=== PATIENT | female | born 1940 | race Caucasian/White ===

== ENCOUNTER 2016-09-18 18:17 | Emergency (ER) | payer MEDICARE, BC ==
[~2016-09-18] VITALS: Wt 56.7 kg
[~2016-09-18 18:17] MED LIST: ACID CONTROLLER20 M1 PO; ALBUTEROL0.09 MG/A2 IH; ALPRAZOLAM0.5 M3 PO; AMOXIL500 MG PO; ANTIVERT25 MG PO; ASPIRIN81 M1 PO; ATIVAN0.5 MG PO; ATROVENT I0.5 MG/2.5 INH; AUGMENTIN 500 M1 TAB PO; AUGMENTIN 500500 M1 PO; AUGMENTIN 875875 MG PO; AVPAK AZITHROM250 M1 PO; AZITHROMYCIN250 MG PO; B-12500 MC1 PO; B121000 MCG/1 IM; BACTRIM DS 8001 TA1 PO; BISCOLAX10 M1 RC; BP MEDICATION; CALCIUM 500-VI1 EACH PO; CALCIUM CARBON500 M1 PO; CARDIZEM CD240 MG PO; CARDIZEM30 MG PO; CARDIZEM5 MG/ML PO; CARDOXIN0.25 MG PO; CEFUROXIME AXE250 MG PO; CELLCEPT250 MG PO; CEPACOL SORE T1 EAC1 MM; CLOTRIMAZOLE TR10 MG PO; COLACE100 MG PO; COREG3.125 MG PO; COUMADIN2 M1 PO; COUMADIN2 MG PO; COUMADIN2.5 M1 PO; COUMADIN3 MG PO; COUMADIN4 M1 PO; COUMADIN5 M2 PO; COUMADIN6 M2 PO; COZAAR25 MG PO; COZAAR50 MG PO; CYMBALTA30 MG PO; Carafate1 GM PO; Coumadin5 MG PO; D-31000 IU PO; DALI500T PO; DAYPRO600 M1 PO; DEEP SEA 45 ML45 ML NAS; DELTASONE10 MG PO; DELTASONE20 MG PO; DIFLUCAN100 MG PO; DIFLUCAN200 MG PO; DIGOXIN0.125 MG PO; DOXYCYCLINE100 MG PO; DULCOLAX5 M1 PO; DULOXETINE HCL60 MG PO; DUONEB 3 MG/3 ML3 M1 INH; DUONEB 3 MG/3 ML3 M1 NEB; Duoneb 3ML 3 MG/3 ML INH; FEOSOL325 MG PO; FERROUSAL325 MG PO; FLOMAX0.4 MG PO; FLONASE0.05 MG/AC NS; FLUCONAZOLE100 MG PO; FLUTICASONE PRO INH; Feosol300 MG PO; Fiorinal,Butalb1 TAB PO; GABAPENTIN100 MG PO; HEMORRHOIDAL TP; HYDROCODONE BIT1 T11 PO; INDOCIN50 MG PO; IRON65 MG PO; K + POTASSIUM20 MEQ PO; K-DUR 20MEQ20 MEQ PO; KLONOPIN0.5 MG PO; LACTULOSE10 GM/15 M PO; LASIX20 MG PO; LASIX80 MG PO; LAXATIVE5 MG PO; LEXAPRO10 MG PO; LISINOPRIL2.5 MG PO; LORAZEPAM0.5 MG PO; LOVASTATIN40 MG PO; Lovenox60 MG/0.6 PO; Lovenox60 MG/0.6 SC; MELATONIN3 MG PO; MELATONIN5 M1 PO; MIACALCIN SPRAY1 EA NAS; MILK OF MA400 MG/51 PO; MIRALAX17 GM PO; MIRALAX17 GM/PACK PO; MIRTAZAPINE15 M2 PO; MUCINEX ER600 MG PO; MUCINEX600 MG PO; MYCAMINE100 MG IV; MYCOSTATIN100000 U/M PO; MYLANTA240 MG MM; Miralax Powder255 GM PO; NEBULIZER DEVI; NEURONTIN100 MG PO; NEURONTIN300 MG PO; NILSTAT,MY500000 UN/ PO; NITROSTAT0.4 MG SL; NORFLEX100 MG PO; NOVAPLUS MYCAM100 MG IV; OCEAN104 ML NAS; OMEPRAZOLE40 MG PO; OXYCODONE AND A1 T12 PO; OXYCODONE HCL5 MG PO; PEPCID20 MG PO; PERCOCET 325 MG1 TA2 PO; PERCOCET 325 MG1 TA3 PO; PERCOCET 325 MG1 TA5 PO; PERCOCET 325 MG1 TA7 PO; PERCOCET 325 MG1 TAB PO; PLAVIX75 MG PO; POTASSIUM CHLO20 ME3 PO; POTASSIUM20 MEQ PO; PRAVACHOL40 MG PO; PREDNICOT20 MG PO; PREDNISONE10 MG PO; PREDNISONE20 M1 PO; PREDNISONE20 MG PO; PREDNISONE5 MG PO; PREDNISONE50 MG PO; PRILOSEC20 M2 PO; PRILOSEC40 M1 PO; PRILOSEC40 MG PO; PROTONIX TR40 M1 PO; PROTONIX TR40 MG PO; PROTONIX40 MG PO; PROVASTATIN; PULMICORT RESP0.5 M1 NEB; PULMICORT RESP0.5 MG INH; PULMICORT RESP0.5 MG NEB; REGLAN5 MG PO; RESTORIL15 MG PO; RISPERDAL0.25 MG PO; RISPERIDONE0.5 MG PO; ROBITUSSIN AC 110 ML PO; ROPINIROLE HYDRO2 M1 PO; SENNA-PLUS 50 M1 TA1 PO; SENNA1 TAB PO; SENNA8.6 MG PO; SEROQUEL25 MG PO; SPIRIVA -- 3018 MCG INH; SYNTHROID25 MCG PO; TEMAZEPAM15 MG PO; TESSALON PERLE100 M1 PO; TESSALON PERLE100 MG PO; TIKOSYN0.25 MG PO; TIKOSYN0.5 MG PO; TORSEMIDE20 MG PO; TRAZODONE50 MG PO; TRIMOX500 MG PO; TYLENOL EXTRA500 M2 PO; TYLENOL325 M2 PO; ULTRAM50 MG PO; VANCOMYCIN HYD500 MG IV; VIBRAMYCIN100 MG PO; VISTARIL25 M2 PO; VITAMIN B12500 MCG PO; VITAMIN D1000 IU PO; VITAMIN D50000 I3 PO; VOLTAREN GEL1% TP; Ventolin 02.5 MG/3 M INH; WARFARIN SODIUM1 MG PO; WARFARIN4 MG PO; XANAX0.25 MG PO; XOPENEX0.63 MG INH; ZESTRIL10 MG PO; ZITHROMAX TRI-500 M1 PO; ZITHROMAX250 MG PO; ZOFRAN ODT4 MG SL; ZOLOFT100 MG PO
[2016-09-18 21:00] LABS: BASO % 0.1 % (0.0-1.0); EOS % 0.1 % (1.0-4.0); HEMATOCRIT 28.6 % (37.0-47.0); HEMOGLOBIN 8.7 g/dl (12.0-16.0); IG # 0.2 10*3/uL (0.0-0.1); LYMPH # 1.6 10*3/uL (1.3-4.4); LYMPH % 14.1 % (27.0-41.0); MEAN CELL VOLUME 103.6 fl (81.0-99.0); MEAN CORPUSCULAR HGB 31.5 pg (27.0-31.0); MEAN CORPUSCULAR HGB CONC 30.4 g/dl (33.0-37.0); MEAN PLATELET VOLUME 9.9 fl (9.6-12.3); MONO % 8.6 % (3.0-9.0); NEUT # 8.6 10*3/uL (2.3-7.9); NEUT % 75.1 % (47.0-73.0); PLATELET COUNT AUTOMATED 220 10*3/uL (130-400); RED BLOOD COUNT 2.76 10*6/uL (4.10-5.10); RED CELL DISTRI WIDTH 14.7 % (0-14.5); WHITE BLOOD COUNT 11.5 10*3/uL (4.8-10.8)
[2016-09-18 21:16] LABS: ALBUMIN 3.5 gm/dl (3.1-4.5); BILIRUBIN, TOTAL 0.1 mg/dl (0.2-1.0); POTASSIUM 3.8 mmol/L (3.5-5.1); TOTAL PROTEIN 6.8 gm/dL (6.4-8.2)
[2016-09-18 21:24] LABS: PROTHROMBIN TIME 78.9 SECONDS (9.0-12.4)
[2016-09-18 21:28] LABS: INTERNATIONAL NORM RATIO 6.6 (2.0-3.5)
[2016-09-18 22:15] LABS: BILIRUBIN NEGATIVE (NEGATIVE); BLOOD TRACE-LYSED (NEGATIVE); CLARITY CLEAR (CLEAR); COLOR YELLOW (YELLOW); GLUCOSE NEGATIVE (NEGATIVE); KETONE NEGATIVE (NEGATIVE); LEUKO ESTERASE NEGATIVE (NEGATIVE); NITRITE NEGATIVE (NEGATIVE); PROTEIN NEGATIVE (NEGATIVE); UROBILINOGEN 0.2 E.U./dl (0.2-1.0)
[2016-09-18 22:41] LABS: HYALINE CAST TNTC; URINE REFLEX COMMENT NO (NO)
== END 2016-09-19 | disposition home or self-care (01) ==
LOC: ED 18:17
PROVIDERS: Nurse Practitioner Family
DX: S81.802A Unspecified open wound, left lower leg, initial encounter (principal); N17.9 Acute kidney failure, unspecified; R79.1 Abnormal coagulation profile; R60.9 Edema, unspecified; I48.91 Unspecified atrial fibrillation; F41.9 Anxiety disorder, unspecified; I25.10 Atherosclerotic heart disease of native coronary artery without angina pectoris; I50.9 Heart failure, unspecified; D64.9 Anemia, unspecified; I12.9 Hypertensive chronic kidney disease with stage 1 through stage 4 chronic kidney disease, or unspecified chronic kidney disease; N18.3 Chronic kidney disease, stage 3 (moderate); J44.9 Chronic obstructive pulmonary disease, unspecified; M47.9 Spondylosis, unspecified; F32.9 Major depressive disorder, single episode, unspecified; K21.9 Gastro-esophageal reflux disease without esophagitis; E78.5 Hyperlipidemia, unspecified; G25.81 Restless legs syndrome; Z95.5 Presence of coronary angioplasty implant and graft; Z95.1 Presence of aortocoronary bypass graft; Z95.0 Presence of cardiac pacemaker; Z96.641 Presence of right artificial hip joint; G89.29 Other chronic pain; Z79.899 Other long term (current) drug therapy; Z88.5 Allergy status to narcotic agent; Z88.1 Allergy status to other antibiotic agents; X58.XXXA Exposure to other specified factors, initial encounter; Y93.89 Activity, other specified; Y92.89 Other specified places as the place of occurrence of the external cause; Y99.9 Unspecified external cause status

== ENCOUNTER 2016-10-17 16:44 | Emergency (ER) | payer MEDICARE, BC ==
[~2016-10-17] VITALS: Ht 162.5 cm; Wt 52.2 kg
[2016-10-17 16:48] VITALS: BP 137/69
[2016-10-17] MEDS ORDERED: NASONEX0.05 MG/AC NAS ×2 (17:08→17:10)
== END 2016-10-17 18:18 | disposition home or self-care (01) ==
LOC: ED 16:44
DX: F41.9 Anxiety disorder, unspecified (principal); R09.81 Nasal congestion; Z95.0 Presence of cardiac pacemaker; Z95.1 Presence of aortocoronary bypass graft; Z95.5 Presence of coronary angioplasty implant and graft; I48.91 Unspecified atrial fibrillation; I25.10 Atherosclerotic heart disease of native coronary artery without angina pectoris; I50.9 Heart failure, unspecified; I12.9 Hypertensive chronic kidney disease with stage 1 through stage 4 chronic kidney disease, or unspecified chronic kidney disease; N18.3 Chronic kidney disease, stage 3 (moderate); F32.9 Major depressive disorder, single episode, unspecified; K21.9 Gastro-esophageal reflux disease without esophagitis; E78.5 Hyperlipidemia, unspecified; Z88.1 Allergy status to other antibiotic agents; Z88.6 Allergy status to analgesic agent; Z79.01 Long term (current) use of anticoagulants

== ENCOUNTER 2016-11-08 20:54 | Emergency (ER) | payer MEDICARE, BC ==
[~2016-11-08 20:54] MED LIST changes: +NASONEX0.05 MG/AC NAS
[2016-11-08 21:27] LABS: BASO % 0.2 % (0.0-1.0); EOS % 0.1 % (1.0-4.0); HEMATOCRIT 27.3 % (37.0-47.0); HEMOGLOBIN 8.8 g/dl (12.0-16.0); IG # 0.1 10*3/uL (0.0-0.1); LYMPH # 1.5 10*3/uL (1.3-4.4); LYMPH % 13.6 % (27.0-41.0); MEAN CELL VOLUME 97.8 fl (81.0-99.0); MEAN CORPUSCULAR HGB 31.5 pg (27.0-31.0); MEAN CORPUSCULAR HGB CONC 32.2 g/dl (33.0-37.0); MEAN PLATELET VOLUME 9.4 fl (9.6-12.3); MONO # 0.7 10*3/uL (0.1-1.0); MONO % 6.1 % (3.0-9.0); NEUT # 8.9 10*3/uL (2.3-7.9); PLATELET COUNT AUTOMATED 228 10*3/uL (130-400); RED BLOOD COUNT 2.79 10*6/uL (4.10-5.10); RED CELL DISTRI WIDTH 14.6 % (0-14.5); WHITE BLOOD COUNT 11.2 10*3/uL (4.8-10.8)
[2016-11-08 21:43] LABS: ALBUMIN 3.3 gm/dl (3.1-4.5); BILIRUBIN, TOTAL 0.3 mg/dl (0.2-1.0); POTASSIUM 3.8 mmol/L (3.5-5.1); PROTHROMBIN TIME 60.2 SECONDS (9.0-12.4); TOTAL PROTEIN 7.3 gm/dL (6.4-8.2)
[2016-11-08 21:44] LABS: TROPONIN I 0.017 ng/ml (<0.045)
[2016-11-08 21:46] LABS: INTERNATIONAL NORM RATIO 5.1 (2.0-3.5)
[2016-11-08 21:48] VITALS: BP 113/61
== END 2016-11-08 23:34 | disposition short-term general hospital (02) ==
LOC: ED 20:54
PROVIDERS: Emergency Medicine Emergency Medical Services
DX: J44.1 Chronic obstructive pulmonary disease with (acute) exacerbation (principal); N17.9 Acute kidney failure, unspecified; I50.30 Unspecified diastolic (congestive) heart failure; F41.9 Anxiety disorder, unspecified; I48.91 Unspecified atrial fibrillation; I25.10 Atherosclerotic heart disease of native coronary artery without angina pectoris; F32.9 Major depressive disorder, single episode, unspecified; K21.9 Gastro-esophageal reflux disease without esophagitis; E78.5 Hyperlipidemia, unspecified; G89.29 Other chronic pain; M47.9 Spondylosis, unspecified; I12.9 Hypertensive chronic kidney disease with stage 1 through stage 4 chronic kidney disease, or unspecified chronic kidney disease; N18.3 Chronic kidney disease, stage 3 (moderate); Z88.1 Allergy status to other antibiotic agents; Z88.6 Allergy status to analgesic agent; Z79.899 Other long term (current) drug therapy; Z79.02 Long term (current) use of antithrombotics/antiplatelets

== ENCOUNTER 2016-11-13 19:43 | Emergency (ER) | payer MEDICARE, BC ==
[~2016-11-13] VITALS: Ht 157.4 cm; Wt 54.0 kg
[2016-11-13 19:54] VITALS: BP 135/64
== END 2016-11-13 22:55 | disposition home or self-care (01) ==
LOC: ED 19:43
DX: S20.212A Contusion of left front wall of thorax, initial encounter (principal); I25.10 Atherosclerotic heart disease of native coronary artery without angina pectoris; I50.9 Heart failure, unspecified; I48.91 Unspecified atrial fibrillation; F41.9 Anxiety disorder, unspecified; J44.9 Chronic obstructive pulmonary disease, unspecified; G89.29 Other chronic pain; F32.9 Major depressive disorder, single episode, unspecified; K21.9 Gastro-esophageal reflux disease without esophagitis; E78.5 Hyperlipidemia, unspecified; I12.9 Hypertensive chronic kidney disease with stage 1 through stage 4 chronic kidney disease, or unspecified chronic kidney disease; N18.3 Chronic kidney disease, stage 3 (moderate); Z88.1 Allergy status to other antibiotic agents; Z88.6 Allergy status to analgesic agent; Z79.899 Other long term (current) drug therapy; W18.39XA Other fall on same level, initial encounter; Y93.89 Activity, other specified; Y92.89 Other specified places as the place of occurrence of the external cause; Y99.8 Other external cause status

== ENCOUNTER 2016-11-15 14:31 | Emergency (ER) | payer MEDICARE, BC ==
[~2016-11-15] VITALS: Ht 152.4 cm
[2016-11-15 15:09] LABS: BASO % 0.2 % (0.0-1.0); EOS # 0.1 10*3/uL (0.0-0.4); EOS % 0.8 % (1.0-4.0); HEMATOCRIT 28.5 % (37.0-47.0); HEMOGLOBIN 8.8 g/dl (12.0-16.0); IG # 0.2 10*3/uL (0.0-0.1); LYMPH # 0.6 10*3/uL (1.3-4.4); LYMPH % 4.9 % (27.0-41.0); MEAN CELL VOLUME 101.8 fl (81.0-99.0); MEAN CORPUSCULAR HGB 31.4 pg (27.0-31.0); MEAN CORPUSCULAR HGB CONC 30.9 g/dl (33.0-37.0); MEAN PLATELET VOLUME 8.9 fl (9.6-12.3); MONO # 0.4 10*3/uL (0.1-1.0); MONO % 3.3 % (3.0-9.0); NEUT # 10.4 10*3/uL (2.3-7.9); NEUT % 89.5 % (47.0-73.0); PLATELET COUNT AUTOMATED 213 10*3/uL (130-400); RED CELL DISTRI WIDTH 14.9 % (0-14.5); WHITE BLOOD COUNT 11.6 10*3/uL (4.8-10.8)
[2016-11-15 15:12] VITALS: BP 142/64
[2016-11-15 15:15] LABS: INTERNATIONAL NORM RATIO 2.7 (2.0-3.5); PROTHROMBIN TIME 30.7 SECONDS (9.0-12.4)
[2016-11-15 15:27] LABS: ALBUMIN 3.2 gm/dl (3.1-4.5); BILIRUBIN, TOTAL 0.3 mg/dl (0.2-1.0); MAGNESIUM 1.7 mg/dL (1.5-2.1)
[2016-11-15 15:28] LABS: TROPONIN I 0.034 ng/ml (<0.045)
[2016-11-15 15:45] LABS: BILIRUBIN NEGATIVE (NEGATIVE); BLOOD TRACE-INTACT (NEGATIVE); CLARITY SL CLOUDY (CLEAR); COLOR YELLOW (YELLOW); GLUCOSE NEGATIVE (NEGATIVE); KETONE NEGATIVE (NEGATIVE); LEUKO ESTERASE NEGATIVE (NEGATIVE); NITRITE NEGATIVE (NEGATIVE); PH 5.5 (5.0-9.0); PROTEIN NEGATIVE (NEGATIVE); UROBILINOGEN 0.2 E.U./dl (0.2-1.0)
[2016-11-15 15:52] LABS: BACTERIA 2+
== END 2016-11-15 16:41 | disposition home or self-care (01) ==
LOC: ED 14:31
PROVIDERS: Student in an Organized Health Care Education/Training Program
DX: R06.02 Shortness of breath (principal); I48.91 Unspecified atrial fibrillation; F41.9 Anxiety disorder, unspecified; I25.10 Atherosclerotic heart disease of native coronary artery without angina pectoris; I50.9 Heart failure, unspecified; G89.29 Other chronic pain; I12.9 Hypertensive chronic kidney disease with stage 1 through stage 4 chronic kidney disease, or unspecified chronic kidney disease; N18.3 Chronic kidney disease, stage 3 (moderate); J44.9 Chronic obstructive pulmonary disease, unspecified; F32.9 Major depressive disorder, single episode, unspecified; K21.9 Gastro-esophageal reflux disease without esophagitis; E78.5 Hyperlipidemia, unspecified; Z86.711 Personal history of pulmonary embolism; G25.81 Restless legs syndrome; Z95.5 Presence of coronary angioplasty implant and graft; Z96.641 Presence of right artificial hip joint; Z95.1 Presence of aortocoronary bypass graft; Z95.0 Presence of cardiac pacemaker; Z98.890 Other specified postprocedural states; Z79.899 Other long term (current) drug therapy; Z88.5 Allergy status to narcotic agent; Z88.1 Allergy status to other antibiotic agents

== ENCOUNTER 2016-12-06 14:52 | Emergency (ER) | payer MEDICARE, BC ==
[~2016-12-06] VITALS: Ht 157.4 cm; Wt 52.6 kg
[2016-12-06] MEDS ORDERED: JANTOVEN4 M1 PO (15:03)
[2016-12-06 15:34] LABS: BASO % 0.3 % (0.0-1.0); EOS # 0.1 10*3/uL (0.0-0.4); EOS % 0.8 % (1.0-4.0); HEMATOCRIT 29.5 % (37.0-47.0); HEMOGLOBIN 9.2 g/dl (12.0-16.0); IG # 0.1 10*3/uL (0.0-0.1); LYMPH # 0.7 10*3/uL (1.3-4.4); MEAN CELL VOLUME 101.7 fl (81.0-99.0); MEAN CORPUSCULAR HGB 31.7 pg (27.0-31.0); MEAN CORPUSCULAR HGB CONC 31.2 g/dl (33.0-37.0); MEAN PLATELET VOLUME 9.1 fl (9.6-12.3); MONO # 0.9 10*3/uL (0.1-1.0); MONO % 7.7 % (3.0-9.0); NEUT # 9.6 10*3/uL (2.3-7.9); NEUT % 84.5 % (47.0-73.0); PLATELET COUNT AUTOMATED 245 10*3/uL (130-400); RED CELL DISTRI WIDTH 14.2 % (0-14.5); WHITE BLOOD COUNT 11.4 10*3/uL (4.8-10.8)
[2016-12-06 15:51] LABS: ALBUMIN 3.6 gm/dl (3.1-4.5); BILIRUBIN, TOTAL 0.4 mg/dl (0.2-1.0); POTASSIUM 3.7 mmol/L (3.5-5.1); TOTAL PROTEIN 7.5 gm/dL (6.4-8.2)
[2016-12-06 15:52] LABS: TROPONIN I 0.018 ng/ml (<0.045)
[2016-12-06 16:55] LABS: BILIRUBIN NEGATIVE (NEGATIVE); BLOOD TRACE-LYSED (NEGATIVE); CLARITY SL CLOUDY (CLEAR); COLOR YELLOW (YELLOW); GLUCOSE NEGATIVE (NEGATIVE); KETONE NEGATIVE (NEGATIVE); LEUKO ESTERASE TRACE (NEGATIVE); NITRITE NEGATIVE (NEGATIVE); PROTEIN NEGATIVE (NEGATIVE); SPECIFIC GRAVITY <= 1.005 (1.005-1.030); UROBILINOGEN 0.2 E.U./dl (0.2-1.0)
[2016-12-06 17:02] LABS: INTERNATIONAL NORM RATIO 1.8 (2.0-3.5); PROTHROMBIN TIME 20.1 SECONDS (9.0-12.4)
[2016-12-06] MEDS ORDERED: DULOXETINE HCL60 MG PO (17:03)
[2016-12-06 17:05] LABS: BACTERIA TRACE; EPITHELIAL CELLS 0-2; URINE REFLEX COMMENT YES (NO)
[2016-12-06 17:30] LABS: LA>2 REFLEX 2 HR DRAW NOW
[2016-12-06 17:47] LABS: LA>2 RFLX FOLLOW UP AT 2 HRS 3.6 mmol/L (0.4-2.0)
[2016-12-06 19:41] LABS: LA>2 REFLEX 4 HR DRAW NOW
[2016-12-06 20:39] VITALS: BP 120/66
== END 2016-12-07 01:42 | disposition short-term general hospital (02) ==
LOC: ED 14:52
PROVIDERS: Nurse Practitioner Family
DX: J44.1 Chronic obstructive pulmonary disease with (acute) exacerbation (principal); N28.9 Disorder of kidney and ureter, unspecified; D53.9 Nutritional anemia, unspecified; J44.9 Chronic obstructive pulmonary disease, unspecified; I25.10 Atherosclerotic heart disease of native coronary artery without angina pectoris; I50.9 Heart failure, unspecified; I48.91 Unspecified atrial fibrillation; K21.9 Gastro-esophageal reflux disease without esophagitis; E78.5 Hyperlipidemia, unspecified; I12.9 Hypertensive chronic kidney disease with stage 1 through stage 4 chronic kidney disease, or unspecified chronic kidney disease; N18.3 Chronic kidney disease, stage 3 (moderate); M47.9 Spondylosis, unspecified; Z88.1 Allergy status to other antibiotic agents; Z88.6 Allergy status to analgesic agent; Z79.899 Other long term (current) drug therapy; Z79.02 Long term (current) use of antithrombotics/antiplatelets

== ENCOUNTER 2017-01-08 20:04 | Emergency (ER) | payer MEDICARE, BC ==
[~2017-01-08] VITALS: Ht 157.4 cm; Wt 52.2 kg
[~2017-01-08 20:04] MED LIST changes: +JANTOVEN4 M1 PO
[2017-01-08 20:28] VITALS: BP 133/61
[2017-01-09] MEDS ORDERED: HYDROCODONE BIT1 T11 PO (15:35)
== END 2017-01-08 21:12 | disposition home or self-care (01) ==
LOC: ED 20:04
DX: T50.1X1A Poisoning by loop [high-ceiling] diuretics, accidental (unintentional), initial encounter (principal); K21.9 Gastro-esophageal reflux disease without esophagitis; E78.5 Hyperlipidemia, unspecified; I25.10 Atherosclerotic heart disease of native coronary artery without angina pectoris; I13.0 Hypertensive heart and chronic kidney disease with heart failure and stage 1 through stage 4 chronic kidney disease, or unspecified chronic kidney disease; N18.3 Chronic kidney disease, stage 3 (moderate); I50.9 Heart failure, unspecified; I48.91 Unspecified atrial fibrillation; G25.81 Restless legs syndrome; Z95.5 Presence of coronary angioplasty implant and graft; Z95.1 Presence of aortocoronary bypass graft; Z95.0 Presence of cardiac pacemaker; Z98.890 Other specified postprocedural states; Z96.641 Presence of right artificial hip joint; Z79.01 Long term (current) use of anticoagulants; Z79.899 Other long term (current) drug therapy; Z88.5 Allergy status to narcotic agent; Z88.1 Allergy status to other antibiotic agents; Y92.9 Unspecified place or not applicable

== ENCOUNTER 2017-01-09 13:01 | Emergency (ER) | payer MEDICARE, BC ==
[~2017-01-09] VITALS: Ht 157.4 cm; Wt 52.2 kg
[2017-01-09 13:12] VITALS: BP 126/56
[2017-01-09 14:38] LABS: HEMATOCRIT 28.3 % (37.0-47.0); HEMOGLOBIN 8.5 g/dl (12.0-16.0); IG # 0.1 10*3/uL (0.0-0.1); LYMPH # 0.5 10*3/uL (1.3-4.4); LYMPH % 5.9 % (27.0-41.0); MEAN CELL VOLUME 101.1 fl (81.0-99.0); MEAN CORPUSCULAR HGB 30.4 pg (27.0-31.0); MEAN PLATELET VOLUME 9.4 fl (9.6-12.3); MONO # 0.2 10*3/uL (0.1-1.0); MONO % 2.8 % (3.0-9.0); NEUT % 89.5 % (47.0-73.0); PLATELET COUNT AUTOMATED 177 10*3/uL (130-400); RED CELL DISTRI WIDTH 14.6 % (0-14.5); WHITE BLOOD COUNT 7.8 10*3/uL (4.8-10.8)
[2017-01-09 14:45] LABS: PROTHROMBIN TIME 22.6 SECONDS (9.0-12.4)
[2017-01-09 15:08] LABS: ALBUMIN 3.1 gm/dl (3.1-4.5); BILIRUBIN, TOTAL 0.3 mg/dl (0.2-1.0); POTASSIUM 4.3 mmol/L (3.5-5.1); TOTAL PROTEIN 6.5 gm/dL (6.4-8.2)
[2017-01-09] MEDS ORDERED: HYDROCODONE BIT1 T11 PO (15:35)
== END 2017-01-09 15:37 | disposition home or self-care (01) ==
LOC: ED 13:01
PROVIDERS: Registered Nurse
DX: G89.29 Other chronic pain (principal); M54.5 Low back pain; D64.9 Anemia, unspecified; J44.9 Chronic obstructive pulmonary disease, unspecified; Z95.1 Presence of aortocoronary bypass graft; Z95.0 Presence of cardiac pacemaker; Z96.641 Presence of right artificial hip joint; Z88.6 Allergy status to analgesic agent; Z88.1 Allergy status to other antibiotic agents; Z79.01 Long term (current) use of anticoagulants; Z79.899 Other long term (current) drug therapy

== ENCOUNTER 2017-01-29 19:53 | Emergency (ER) | payer MEDICARE, BC ==
[~2017-01-29] VITALS: Ht 157.4 cm; Wt 53.5 kg
[2017-01-29 20:00] VITALS: BP 123/80
[2017-01-29 20:34] LABS: BASO % 0.1 % (0.0-1.0); HEMATOCRIT 31.5 % (37.0-47.0); HEMOGLOBIN 9.5 g/dl (12.0-16.0); IG # 0.1 10*3/uL (0.0-0.1); LYMPH # 0.9 10*3/uL (1.3-4.4); LYMPH % 11.2 % (27.0-41.0); MEAN CELL VOLUME 101.9 fl (81.0-99.0); MEAN CORPUSCULAR HGB 30.7 pg (27.0-31.0); MEAN CORPUSCULAR HGB CONC 30.2 g/dl (33.0-37.0); MEAN PLATELET VOLUME 9.2 fl (9.6-12.3); MONO # 0.7 10*3/uL (0.1-1.0); MONO % 8.5 % (3.0-9.0); NEUT # 6.4 10*3/uL (2.3-7.9); NEUT % 79.1 % (47.0-73.0); PLATELET COUNT AUTOMATED 203 10*3/uL (130-400); RED BLOOD COUNT 3.09 10*6/uL (4.10-5.10); RED CELL DISTRI WIDTH 15.2 % (0-14.5); WHITE BLOOD COUNT 8.1 10*3/uL (4.8-10.8)
[2017-01-29 20:44] LABS: INTERNATIONAL NORM RATIO 4.5 (2.0-3.5); PROTHROMBIN TIME 52.2 SECONDS (9.0-12.4)
[2017-01-29 20:52] LABS: ALBUMIN 3.4 gm/dl (3.1-4.5); BILIRUBIN, TOTAL 0.3 mg/dl (0.2-1.0); MAGNESIUM 1.9 mg/dL (1.5-2.1); POTASSIUM 3.7 mmol/L (3.5-5.1); TROPONIN I 0.033 ng/ml (<0.045)
== END 2017-01-29 23:03 | disposition home or self-care (01) ==
LOC: ED 19:53
PROVIDERS: Student in an Organized Health Care Education/Training Program
DX: R53.1 Weakness (principal); M54.9 Dorsalgia, unspecified; J44.9 Chronic obstructive pulmonary disease, unspecified; Z95.1 Presence of aortocoronary bypass graft; Z95.0 Presence of cardiac pacemaker; I13.0 Hypertensive heart and chronic kidney disease with heart failure and stage 1 through stage 4 chronic kidney disease, or unspecified chronic kidney disease; N18.3 Chronic kidney disease, stage 3 (moderate); I50.9 Heart failure, unspecified; K21.9 Gastro-esophageal reflux disease without esophagitis; E78.5 Hyperlipidemia, unspecified; I25.10 Atherosclerotic heart disease of native coronary artery without angina pectoris; Z79.01 Long term (current) use of anticoagulants; Z79.899 Other long term (current) drug therapy; Z88.1 Allergy status to other antibiotic agents; Z88.6 Allergy status to analgesic agent

== ENCOUNTER 2017-02-07 11:29 | Emergency (ER) | payer MEDICARE, BC ==
[~2017-02-07] VITALS: Ht 157.4 cm; Wt 53.5 kg
[2017-02-07 11:42] VITALS: BP 138/70
== END 2017-02-07 13:27 | disposition home or self-care (01) ==
LOC: ED 11:29
DX: G89.29 Other chronic pain (principal); M54.5 Low back pain; I48.91 Unspecified atrial fibrillation; I25.10 Atherosclerotic heart disease of native coronary artery without angina pectoris; E78.5 Hyperlipidemia, unspecified; I13.0 Hypertensive heart and chronic kidney disease with heart failure and stage 1 through stage 4 chronic kidney disease, or unspecified chronic kidney disease; N18.3 Chronic kidney disease, stage 3 (moderate); K21.9 Gastro-esophageal reflux disease without esophagitis; J44.9 Chronic obstructive pulmonary disease, unspecified; Z88.1 Allergy status to other antibiotic agents; Z88.6 Allergy status to analgesic agent; Z79.899 Other long term (current) drug therapy; Z79.02 Long term (current) use of antithrombotics/antiplatelets

== ENCOUNTER 2017-02-11 14:04 | Inpatient (IN) | payer MEDICARE, BC ==
[~2017-02-11] VITALS: Ht 157.4 cm; Wt 55.0 kg
--- NOTE | ~2017-02-11 | PR ---
[place], [place] PROGRESS NOTE NAME: BONI BARRETT [facility] #: [id number] UNIT #: [id number] ROOM: 427 DOCTOR: MONI PFEIFFER MD BIRTHDATE: [birth year] DOS: 02/14/2017 SUBJECTIVE: The patient is still complaining of lower back pains, not in the midline, but to the sides and she has not had any good bowel movements despite of two Fleet's enemas yesterday after which she refused any more enemas. OBJECTIVE: VITAL SIGNS: Blood pressure 102/64, heart rate of 98 beats per minute, breathing 18 times per minute, temperature 98.4 degrees Fahrenheit. GENERAL APPEARANCE: Generalized weakness. HEENT AND NECK: Exam within normal limits. CARDIOVASCULAR: Heart rate is regular in rate and rhythm. S1 and S2 normally audible. LUNGS: Clear to auscultation. ABDOMEN: Soft, nontender. No obvious organomegaly. Bowel sounds are present. EXTREMITIES: Without significant cyanosis or edema. IMPRESSION: 1. Severe constipation, opioid-induced. The patient did not want any more enemas after she received two yesterday and she had little bowel movement. The patient remains constipated and she is already on MiraLax and Colace. I will give her 1 bottle of mag citrate and the patient would prefer suppositories so she is getting Dulcolax suppository now. Nursing staff have informed me that if she still does not have a good bowel moment, in that case, I will give her more treatment. 2. Status post T10 and L3 vertebroplasty by Dr. Moore, doing well. No pain at the vertebroplasty site. 3. Chronic atrial fibrillation. The patient on Coumadin. INR is subtherapeutic, so I will give her a double dose today. 4. Postmenopausal osteoporosis, being treated with calcium and vitamin D, and Fosamax, and Dr. Clark plans to add Fosamax later on. 5. Centrilobular emphysema with chronic shortness of breath. MONI PFEIFFER MD CM:PNTRANS [phone] MONI PFEIFFER MD 02/15/17 0453 interface
--- NOTE | ~2017-02-11 | PR ---
[place], [place] PROGRESS NOTE NAME: BONI BARRETT [facility] #: [id number] UNIT #: [id number] ROOM: 427 DOCTOR: MONI PFEIFFER MD BIRTHDATE: [birth year] DOS: 02/13/2017 SUBJECTIVE: The patient complaining of left lower back pain and complains of significant constipation. PHYSICAL EXAMINATION: VITAL SIGNS: Blood pressure 104/50, heart rate 77 beats per minute, breathing 18 times per minute and temperature 98 degrees Fahrenheit. GENERAL APPEARANCE: The patient is alert and oriented x 3, in no visible distress. Generalized weakness. HEENT AND NECK: Exam within normal limits. CARDIOVASCULAR SYSTEM: Heart rate is regular in rate and rhythm. S1 and S2 normally audible. LUNGS: Clear to auscultation. ABDOMEN: Soft, nontender. No obvious organomegaly. Bowel sounds are present. EXTREMITIES: Without significant cyanosis or edema. IMPRESSION AND PLAN: 1. Severe opioid-induced constipation, to be treated with Fleet Enema, which will be repeated until she has a good bowel movement and then also adding MiraLax with Colace that the patient is already receiving for constipation. 2. The patient is status post T10 and L3 vertebroplasty by Dr. Moore with no pain at the vertebroplasty site. 3. Chronic atrial fibrillation. The patient restarted on Coumadin. I will follow her protime and try to get them between 2 and 3. 3. Postmenopausal osteoporosis, treated with calcium and vitamin D. 4. Centrilobular emphysema with chronic shortness of breath. MONI PFEIFFER MD CM:PNTRANS [phone] MONI PFEIFFER MD 02/14/17 0558 interface
--- NOTE | ~2017-02-11 | PR ---
[place], [place] PROGRESS NOTE NAME: BONI BARRETT [facility] #: [id number] UNIT #: [id number] ROOM: 427 DOCTOR: JAVAD WILDER MD BIRTHDATE: [birth year] DOS: 02/15/2017 SUBJECTIVE: The patient is doing fine without any complaint. Denies any chest pains, palpitations. She was constipated and required multiple medications and has had multiple BMs after that and seems to be clearing. OBJECTIVE: VITAL SIGNS: Blood pressure is 108/68, pulse is 70, respirations 20, temperature 97.5. LUNGS: Clear. HEART: Irregular, heart rate in the 70s. ABDOMEN: Obese, soft, nontender. EXTREMITIES: Without any edema. ASSESSMENT AND PLAN: 1. Vertebral fracture, status post vertebroplasty. 2. Chronic atrial fibrillation, on Coumadin. Coumadin was restarted. Protime is on the low side. Extra dose of Coumadin to be given. 3. Chronic obstructive pulmonary disease, chronic oxygen dependent; chronic respiratory failure, stable. The patient can be discharged after the vertebroplasty if she remains stable. JAVAD WILDER MD CM:PNTRANS [phone] JAVAD WILDER MD 02/16/17 0712 interface
--- NOTE | ~2017-02-11 | DS ---
[place], [place] DISCHARGE SUMMARY NAME: BONI BARRETT [facility] #: [id number] UNIT #: [id number] ROOM: 427 DOCTOR: JAVAD WILDER MD BIRTHDATE: [birth year] DOS: 02/15/2017 DIAGNOSES: 1. Acute compression fracture of T10 and L3, status post vertebroplasty. 2. Chronic atrial fibrillation. Coumadin was held for the procedure, was restarted. Extra dose of Coumadin was given today. 3. Chronic obstructive pulmonary disease with chronic respiratory failure, stable without any exacerbation. 4. Generalized anxiety disorder. 5. Multiple compression fractures. The patient will require a bone density as an outpatient to rule out postmenopausal osteoporosis. 6. Chronic hypoadrenalism. 7. Major depression, moderate, recurrent. MEDICATIONS ON DISCHARGE: Potassium 20 b.i.d., Colace 100 b.i.d., iron 325 daily, vitamin B12 500 mcg daily, Miacalcin one spray to each nasal b.i.d., calcium 500 daily, Xopenex 0.63 q. 4 hours, CellCept 250 b.i.d., Protonix 40 daily, melatonin 3 mg at bedtime, sennosides 8.5 at bedtime, trazodone 100 at bedtime, Xanax 0.5 daily p.r.n., carvedilol 3.125 b.i.d., warfarin 4 mg daily, duloxetine 60 daily, folic acid 1 mg daily, Lipitor 20 daily, Dulera 100/5 one puff twice a day, Lasix 40 b.i.d., prednisone 10 daily, milk of magnesia 30 mL daily p.r.n. and Ativan 0.5 at bedtime. HISTORY OF PRESENT ILLNESS: The patient is 76 years old, presents with complaints of acute pain. She heard a pop in her back. [facility]. X-rays showed a small compression fracture of L3. They did not admit the patient, but advised a bone scan as an outpatient. The patient underwent the bone scan, which showed fractures. The patient came to [facility] with continued complaints of back pain and she was admitted. After admission, the patient's Coumadin was discontinued for pending procedure. Dr. Moore was consulted and vertebroplasty was ordered. This was performed on Wednesday morning successfully and the patient is pain free after that. She has been receiving Toradol, which was discontinued. The patient has chronic respiratory failure, has been stable. She also has chronic anxiety and depression, which has been stable. She does not have any new complaints. LABORATORY DATA: Repeat chest x-ray shows cardiomegaly without any active pulmonary disease. WBC count on the 02/13/2017 is 6.2, hemoglobin 7.6, hematocrit 25.4 and platelets 170. BMP: Glucose 97, BUN 16, creatinine 1.1, sodium 141, potassium 4.2, chloride 100. Protime is subtherapeutic this morning at 1.6. Extra dose of Coumadin to be given today, 4 mg, before she is released and she will receive her 4 mg that she takes at night at home. The patient is stable and can be discharged to home to follow up as an outpatient. [place], [place] DISCHARGE SUMMARY [facility] #[facility] [id number] UNIT #: [id number] ROOM: 427 DOCTOR: JAVAD WILDER MD BIRTHDATE: [birth year] JAVAD WILDER MD CM:DISCHKADEN [phone] JAVAD WILDER MD 02/15/17 1208 interface
--- NOTE | ~2017-02-11 | WRIGHTHP ---
[place], [place] PATIENT HISTORY AND PHYSICAL EXAM NAME: BONI BARRETT [facility] #: [id number] UNIT #: [id number] ROOM: 427 DOCTOR: JAVAD WILDER MD BIRTHDATE: [birth year] DOS: 02/11/2017 HISTORY OF PRESENT ILLNESS: The patient is 76 years old. The patient comes in with complaints of back pain. She was seen and admitted to [facility] two days prior to this admission for the same complaints and was noted to have 30% compression fracture of L3. She was discharged to home. She came back here again with back pain. At this time, x-rays were done, which showed compression fracture, which was continuing to give her more pain. The patient's condition was discussed with Dr. Moore who reviewed the x-rays and felt that she could undergo vertebroplasty and so the patient was admitted. After that the patient was found to have a high protime and did receive fresh frozen plasma and vitamin K in the ER to bring the protime down. This morning, the patient complains of quite a lot of back pain. She has a hard time trying to get up or move in bed. Denies having any chest pains or palpitations. Does not have any fever or chills. Shortness of breath is at her baseline. Denies having any leg edema, nausea, vomiting or abdominal pain. PAST MEDICAL HISTORY: Significant for: 1. Chronic respiratory failure from underlying chronic obstructive pulmonary disease. 2. Generalized anxiety disorder. 3. Coronary artery disease. 4. Chronic atrial fibrillation. 5. History of compression fracture with kyphoplasty of L4-L5. 6. Chronic hypoadrenalism. 7. Major depression, moderate, recurrent. SOCIAL HISTORY: Nonsmoker, does not use any alcohol. Lives at home. MEDICATIONS: Xopenex 0.63 q.4h., Tylenol 325 q. 4 hours, Xanax 0.5 daily, atorvastatin 20 daily, Coreg 3.125 twice a day, Colace 100 b.i.d., Cymbalta 60 daily, iron 325 daily, Folic acid 1 mg daily, Lasix 40 b.i.d., lorazepam 0.5 at bedtime, melatonin 3 mg at bedtime, CellCept 250 mg twice a day, Protonix 40 mg daily, Coumadin, prednisone 10 daily, trazodone 50 at bedtime. PHYSICAL EXAMINATION: GENERAL: She is awake and alert and oriented, in some distress from her back pain. VITAL SIGNS: Graphic trend shows that she is afebrile, blood pressure is 132/70, pulse of 86, respirations 16. Afebrile. LUNGS: Diminished breath sounds, clear. HEART: Irregular, controlled heart rate. ABDOMEN: Soft, scaphoid. EXTREMITIES: Without any edema. BACK: Examination of back, there is diffuse tenderness over the back, especially worse in the lumbar area. ASSESSMENT AND PLAN: 1. The patient admitted with acute back pain with a compression fracture. This morning, I am unable to find the x-rays that were presumably done in the ER, [place], [place] PATIENT HISTORY AND PHYSICAL EXAM NAME: BONI BARRETT [facility] #: [id number] UNIT #: [id number] ROOM: [facility] DOCTOR: JAVAD WILDER MD BIRTHDATE: [birth year] which showed this compression fracture of L3-L4. Dr. Moore has been consulted. The patient is supposed to undergo vertebroplasty. 2. Chronic atrial fibrillation, on Coumadin. Protime is now down to 1.3, is safe enough to undergo the procedure. She will be restarted back on Coumadin today evening after the procedure is over. 3. Most likely patient has underlying postmenopausal osteoporosis. We will need a bone density as an outpatient. Continue her calcium supplements, but she need bisphosphonates also. 4. Chronic obstructive pulmonary disease, stable without any exacerbation. Continue current treatment plan. JAVAD WILDER MD CM:HISPHYS:PATIENT HISTORY AND PHYSICAL EXAMINATION 8 0 JAVAD WILDER MD 02/12/17810 interface
[~2017-02-11 14:04] MED LIST changes: -ALDACTONE25 M1 PO; -DULERA 100 MCG8.8 GM INH; -LASIX40 MG PO; -LIPITOR20 MG PO; -MOM30 M1 PO; -NAPROXEN D/R500 MG PO; -NATURE'S BLEND F1 MG PO; -PREDNISONE10 M1 PO; -PROVENTIL HFA6.7 GM INH; -RISPERDAL0.5 MG PO; -TYLENOL325 M1 PO; -VITAMIN B COMP1 EACH PO
[2017-02-11 14:23] VITALS: BP 117/57
[2017-02-11 14:56] LABS: BASO % 0.1 % (0.0-1.0); EOS % 0.1 % (1.0-4.0); HEMATOCRIT 29.5 % (37.0-47.0); HEMOGLOBIN 8.7 g/dl (12.0-16.0); IG # 0.2 10*3/uL (0.0-0.1); LYMPH # 0.6 10*3/uL (1.3-4.4); LYMPH % 6.3 % (27.0-41.0); MEAN CELL VOLUME 102.8 fl (81.0-99.0); MEAN CORPUSCULAR HGB 30.3 pg (27.0-31.0); MEAN CORPUSCULAR HGB CONC 29.5 g/dl (33.0-37.0); MEAN PLATELET VOLUME 9.4 fl (9.6-12.3); MONO # 0.5 10*3/uL (0.1-1.0); MONO % 4.9 % (3.0-9.0); NEUT # 8.4 10*3/uL (2.3-7.9); PLATELET COUNT AUTOMATED 187 10*3/uL (130-400); RED BLOOD COUNT 2.87 10*6/uL (4.10-5.10); RED CELL DISTRI WIDTH 14.8 % (0-14.5); WHITE BLOOD COUNT 9.7 10*3/uL (4.8-10.8)
[2017-02-11 15:06] LABS: INTERNATIONAL NORM RATIO 2.3 (2.0-3.5); PROTHROMBIN TIME 25.3 SECONDS (9.0-12.4)
[2017-02-11 15:15] LABS: ALBUMIN 3.4 gm/dl (3.1-4.5); ALKALINE PHOSPHATASE 88 U/L (45-117); BILIRUBIN, TOTAL 0.4 mg/dl (0.2-1.0); BUN 16 mg/dl (7-24); CARBON DIOXIDE 30 mmol/L (21-32); CHLORIDE 98 mmol/L (98-107); EST GLOM FILT AFRICAN AMERICAN > 60 ml/min; GLUCOSE 148 mg/dL (65-99); POTASSIUM 4.6 mmol/L (3.5-5.1); SGOT/AST 16 IU/L (3-35); SGPT/ALT 16 U/L (12-78); SODIUM 137 mmol/L (136-145); TOTAL PROTEIN 6.8 gm/dL (6.4-8.2)
[2017-02-11 16:56] VITALS: BP 114/62
[2017-02-11 17:28] VITALS: BP 116/56
[2017-02-11] MEDS ORDERED: NATURE'S BLEND F1 MG PO (17:57)
[2017-02-11] MEDS ORDERED: ALDACTONE25 M1 PO (18:01)
[2017-02-11] MEDS ORDERED: NAPROXEN D/R500 MG PO (18:03)
[2017-02-11] MEDS ORDERED: RISPERDAL0.5 MG PO (18:04)
[2017-02-11] MEDS ORDERED: LIPITOR20 MG PO (18:05)
[2017-02-11] MEDS ORDERED: DULERA 100 MCG8.8 GM INH (18:10)
[2017-02-11] MEDS ORDERED: TYLENOL325 M1 PO (18:50)
[2017-02-11] MEDS ORDERED: PROVENTIL HFA6.7 GM INH ×2 (18:51→22:39)
[2017-02-11] MEDS ORDERED: LASIX40 MG PO (18:56)
[2017-02-11] MEDS ORDERED: MOM30 M1 PO (18:57)
[2017-02-11] MEDS ORDERED: VITAMIN B COMP1 EACH PO (19:02)
[2017-02-11] MEDS ORDERED: PREDNISONE10 M1 PO (19:12)
[2017-02-11 20:00] VITALS: BP 113/78
[2017-02-11] MEDS ORDERED: TYLENOL325 M2 PO (22:36)
[2017-02-11] MEDS ORDERED: ATIVAN0.5 MG PO (22:51)
[2017-02-12] VITALS (14 sets, daily range): BP systolic 95–128; BP diastolic 35–82
[2017-02-12 05:49] LABS: POTASSIUM 3.9 mmol/L (3.5-5.1)
[2017-02-12 05:51] LABS: BASO % 0.2 % (0.0-1.0); EOS # 0.1 10*3/uL (0.0-0.4); EOS % 0.8 % (1.0-4.0); HEMOGLOBIN 7.5 g/dl (12.0-16.0); IG # 0.1 10*3/uL (0.0-0.1); LYMPH # 1.2 10*3/uL (1.3-4.4); LYMPH % 20.3 % (27.0-41.0); MEAN CELL VOLUME 101.2 fl (81.0-99.0); MEAN CORPUSCULAR HGB 30.4 pg (27.0-31.0); MEAN PLATELET VOLUME 9.3 fl (9.6-12.3); MONO # 0.6 10*3/uL (0.1-1.0); MONO % 10.5 % (3.0-9.0); NEUT % 66.2 % (47.0-73.0); PLATELET COUNT AUTOMATED 174 10*3/uL (130-400); RED BLOOD COUNT 2.47 10*6/uL (4.10-5.10); RED CELL DISTRI WIDTH 14.9 % (0-14.5)
[2017-02-12 06:17] LABS: INTERNATIONAL NORM RATIO 1.3 (2.0-3.5); PROTHROMBIN TIME 14.4 SECONDS (9.0-12.4)
[2017-02-13] VITALS: BP 115/57
[2017-02-13 06:50] LABS: BASO % 0.2 % (0.0-1.0); EOS # 0.1 10*3/uL (0.0-0.4); EOS % 1.8 % (1.0-4.0); HEMATOCRIT 25.3 % (37.0-47.0); HEMOGLOBIN 7.6 g/dl (12.0-16.0); IG # 0.1 10*3/uL (0.0-0.1); LYMPH # 0.7 10*3/uL (1.3-4.4); MEAN CELL VOLUME 102.4 fl (81.0-99.0); MEAN CORPUSCULAR HGB 30.8 pg (27.0-31.0); MEAN PLATELET VOLUME 9.3 fl (9.6-12.3); MONO # 0.5 10*3/uL (0.1-1.0); MONO % 8.1 % (3.0-9.0); NEUT # 4.8 10*3/uL (2.3-7.9); NEUT % 77.3 % (47.0-73.0); PLATELET COUNT AUTOMATED 170 10*3/uL (130-400); RED BLOOD COUNT 2.47 10*6/uL (4.10-5.10); RED CELL DISTRI WIDTH 14.9 % (0-14.5); WHITE BLOOD COUNT 6.2 10*3/uL (4.8-10.8)
[2017-02-13 08:00] VITALS: BP 101/62
[2017-02-13 12:00] VITALS: BP 109/49
[2017-02-13 16:00] VITALS: BP 104/49
[2017-02-13 20:00] VITALS: BP 128/62
[2017-02-14] VITALS: BP 126/56
[2017-02-14 07:10] LABS: INTERNATIONAL NORM RATIO 1.1 (2.0-3.5); PROTHROMBIN TIME 12.1 SECONDS (9.0-12.4)
[2017-02-14 08:00] VITALS: BP 110/54
[2017-02-14 12:00] VITALS: BP 102/64
[2017-02-14 16:00] VITALS: BP 122/62
[2017-02-14 20:00] VITALS: BP 120/59
[2017-02-15] VITALS: BP 108/68
[2017-02-15 06:26] LABS: INTERNATIONAL NORM RATIO 1.6 (2.0-3.5); PROTHROMBIN TIME 17.2 SECONDS (9.0-12.4)
[2017-02-15 08:00] VITALS: BP 110/50
== END 2017-02-15 12:16 | disposition home or self-care (01) | DRG 516 ==
LOC: ED 14:04 → EDHOLD 16:07 → 4E 16:07
PROVIDERS: Emergency Medicine; Internal Medicine
PROC: 0PU43JZ Supplement Thoracic Vertebra with Synthetic Substitute, Percutaneous Approach (ICD-10-PCS; principal; 2017-02-12)
PROC: 0QU03JZ Supplement Lumbar Vertebra with Synthetic Substitute, Percutaneous Approach (ICD-10-PCS; principal; 2017-02-12)
DX: M48.54XA Collapsed vertebra, not elsewhere classified, thoracic region, initial encounter for fracture (principal); I13.0 Hypertensive heart and chronic kidney disease with heart failure and stage 1 through stage 4 chronic kidney disease, or unspecified chronic kidney disease; J96.10 Chronic respiratory failure, unspecified whether with hypoxia or hypercapnia; E27.49 Other adrenocortical insufficiency; I50.9 Heart failure, unspecified; F33.1 Major depressive disorder, recurrent, moderate; T40.2X5A Adverse effect of other opioids, initial encounter; K59.03 Drug induced constipation; I25.10 Atherosclerotic heart disease of native coronary artery without angina pectoris; N18.3 Chronic kidney disease, stage 3 (moderate); K21.9 Gastro-esophageal reflux disease without esophagitis; E78.5 Hyperlipidemia, unspecified; M81.0 Age-related osteoporosis without current pathological fracture; M48.56XA Collapsed vertebra, not elsewhere classified, lumbar region, initial encounter for fracture; Z96.641 Presence of right artificial hip joint; F41.1 Generalized anxiety disorder; I48.2 Chronic atrial fibrillation; J43.2 Centrilobular emphysema; Z88.1 Allergy status to other antibiotic agents; Z99.81 Dependence on supplemental oxygen; Y92.89 Other specified places as the place of occurrence of the external cause; Z88.5 Allergy status to narcotic agent; Z88.8 Allergy status to other drugs, medicaments and biological substances; Z86.711 Personal history of pulmonary embolism; Z95.5 Presence of coronary angioplasty implant and graft; Z95.1 Presence of aortocoronary bypass graft; Z95.0 Presence of cardiac pacemaker; Z98.1 Arthrodesis status; Z95.2 Presence of prosthetic heart valve; Z80.8 Family history of malignant neoplasm of other organs or systems; Z82.49 Family history of ischemic heart disease and other diseases of the circulatory system; Z83.3 Family history of diabetes mellitus

== ENCOUNTER → 2017-02-11 | Outpatient (CLI) | payer MEDICARE, BC ==
[~2017-02-11] MED LIST changes: +ALDACTONE25 M1 PO; -CALCIUM 500-VI1 EACH PO; +DULERA 100 MCG8.8 GM INH; +LASIX40 MG PO; +LIPITOR20 MG PO; -MIACALCIN SPRAY1 EA NAS; +MIACALCIN3.7 ML NAS; +MOM30 M1 PO; +NAPROXEN D/R500 MG PO; +NATURE'S BLEND F1 MG PO; +Oscal,Oyster S500 MG PO; +PREDNISONE10 M1 PO; +PROVENTIL HFA6.7 GM INH; +RISPERDAL0.5 MG PO; +TYLENOL325 M1 PO; +VITAMIN B COMP1 EACH PO
== END | disposition home or self-care (01) ==
LOC: NM 09:45
DX: M48.56XA Collapsed vertebra, not elsewhere classified, lumbar region, initial encounter for fracture (principal); M19.90 Unspecified osteoarthritis, unspecified site; Z96.651 Presence of right artificial knee joint; Z96.641 Presence of right artificial hip joint

== ENCOUNTER 2017-06-13 16:27 | Inpatient (IN) | payer MEDICARE, BC ==
[~2017-06-13] VITALS: Ht 157.4 cm; Wt 48.1 kg
[~2017-06-13 16:27] MED LIST changes: +ALDACTONE25 M1 PO; +DULERA 100 MCG8.8 GM INH; +LASIX40 MG PO; +LIPITOR20 MG PO; +MOM30 M1 PO; +NAPROXEN D/R500 MG PO; +NATURE'S BLEND F1 MG PO; +PREDNISONE10 M1 PO; +PROVENTIL HFA6.7 GM INH; +RISPERDAL0.5 MG PO; +TYLENOL325 M1 PO; +VITAMIN B COMP1 EACH PO
[2017-06-13 16:39] VITALS: BP 156/88
[2017-06-13 17:25] LABS: BASO % 0.4 % (0.0-1.0); EOS # 0.2 10*3/uL (0.0-0.4); EOS % 3.7 % (1.0-4.0); HEMATOCRIT 27.3 % (37.0-47.0); HEMOGLOBIN 8.5 g/dl (12.0-16.0); LYMPH # 1.1 10*3/uL (1.3-4.4); MEAN CELL VOLUME 105.4 fl (81.0-99.0); MEAN CORPUSCULAR HGB 32.8 pg (27.0-31.0); MEAN CORPUSCULAR HGB CONC 31.1 g/dl (33.0-37.0); MEAN PLATELET VOLUME 9.3 fl (9.6-12.3); MONO # 0.6 10*3/uL (0.1-1.0); MONO % 11.5 % (3.0-9.0); NEUT # 3.3 10*3/uL (2.3-7.9); PLATELET COUNT AUTOMATED 157 10*3/uL (130-400); RED BLOOD COUNT 2.59 10*6/uL (4.10-5.10); WHITE BLOOD COUNT 5.2 10*3/uL (4.8-10.8)
[2017-06-13 17:34] LABS: ACT PARTIAL THROMBO TIME 36.4 SECONDS (20.8-31.5); INTERNATIONAL NORM RATIO 3.9 (2.0-3.5)
[2017-06-13 17:41] LABS: ALBUMIN 2.7 gm/dl (3.1-4.5); ALKALINE PHOSPHATASE 76 U/L (45-117); BUN 8 mg/dl (7-24); CHLORIDE 102 mmol/L (98-107); CREATININE 0.74 mg/dL (0.55-1.02); POTASSIUM 2.6 mmol/L (3.5-5.1); SGOT/AST 13 IU/L (3-35); SGPT/ALT 13 U/L (12-78); SODIUM 143 mmol/L (136-145); TOTAL PROTEIN 6.9 gm/dL (6.4-8.2)
[2017-06-13 17:42] LABS: TROPONIN I 0.018 ng/ml (<0.045)
[2017-06-13 19:24] VITALS: BP 121/68
[2017-06-13 19:55] VITALS: BP 137/68
[2017-06-14] VITALS: BP 127/68
[2017-06-14 06:48] LABS: BASO % 0.6 % (0.0-1.0); EOS # 0.2 10*3/uL (0.0-0.4); EOS % 3.9 % (1.0-4.0); HEMATOCRIT 27.5 % (37.0-47.0); HEMOGLOBIN 8.6 g/dl (12.0-16.0); LYMPH # 1.3 10*3/uL (1.3-4.4); LYMPH % 26.2 % (27.0-41.0); MEAN CELL VOLUME 105.4 fl (81.0-99.0); MEAN CORPUSCULAR HGB CONC 31.3 g/dl (33.0-37.0); MEAN PLATELET VOLUME 9.7 fl (9.6-12.3); MONO # 0.6 10*3/uL (0.1-1.0); MONO % 11.6 % (3.0-9.0); NEUT # 2.8 10*3/uL (2.3-7.9); NEUT % 57.3 % (47.0-73.0); PLATELET COUNT AUTOMATED 174 10*3/uL (130-400); RED BLOOD COUNT 2.61 10*6/uL (4.10-5.10); WHITE BLOOD COUNT 4.8 10*3/uL (4.8-10.8)
[2017-06-14 07:02] LABS: BUN 8 mg/dl (7-24); CHLORIDE 100 mmol/L (98-107); CREATININE 0.65 mg/dL (0.55-1.02); POTASSIUM 2.5 mmol/L (3.5-5.1); SODIUM 141 mmol/L (136-145)
[2017-06-14 08:00] VITALS: BP 105/52
[2017-06-14] MEDS ORDERED: NORCO 5-325 TA1 EACH PO (10:38)
[2017-06-14] MEDS ORDERED: ZOFRAN4 MG PO (10:46)
[2017-06-14] MEDS ORDERED: PRILOSEC20 M1 PO (10:47)
[2017-06-14 12:00] VITALS: BP 130/53
== END 2017-06-14 19:33 | disposition left against medical advice (07) | DRG 191 ==
LOC: ED 16:27 → 5E 18:14 → EDHOLD 18:14 → 5E 18:24
PROVIDERS: Emergency Medicine; Internal Medicine; ADMIT Internal Medicine
DX: J44.1 Chronic obstructive pulmonary disease with (acute) exacerbation (principal); F33.9 Major depressive disorder, recurrent, unspecified; I48.91 Unspecified atrial fibrillation; I50.9 Heart failure, unspecified; I13.0 Hypertensive heart and chronic kidney disease with heart failure and stage 1 through stage 4 chronic kidney disease, or unspecified chronic kidney disease; D64.9 Anemia, unspecified; Z99.81 Dependence on supplemental oxygen; G25.81 Restless legs syndrome; E87.6 Hypokalemia; J98.4 Other disorders of lung; G89.29 Other chronic pain; I25.10 Atherosclerotic heart disease of native coronary artery without angina pectoris; N18.3 Chronic kidney disease, stage 3 (moderate); M47.9 Spondylosis, unspecified; F41.9 Anxiety disorder, unspecified; K21.9 Gastro-esophageal reflux disease without esophagitis; Z53.21 Procedure and treatment not carried out due to patient leaving prior to being seen by health care provider; E78.5 Hyperlipidemia, unspecified; M54.6 Pain in thoracic spine; Z88.6 Allergy status to analgesic agent; Z88.1 Allergy status to other antibiotic agents; Z88.8 Allergy status to other drugs, medicaments and biological substances; Z79.899 Other long term (current) drug therapy; Z79.01 Long term (current) use of anticoagulants; Z87.01 Personal history of pneumonia (recurrent); Z86.711 Personal history of pulmonary embolism; Z87.81 Personal history of (healed) traumatic fracture; Z95.818 Presence of other cardiac implants and grafts; Z95.1 Presence of aortocoronary bypass graft; Z95.2 Presence of prosthetic heart valve; Z96.641 Presence of right artificial hip joint; Z80.9 Family history of malignant neoplasm, unspecified; Z83.3 Family history of diabetes mellitus; Z82.49 Family history of ischemic heart disease and other diseases of the circulatory system; Z98.1 Arthrodesis status

== ENCOUNTER 2017-06-26 13:21 | Inpatient (IN) | payer MEDICARE, BC ==
[~2017-06-26] VITALS: Ht 157.4 cm; Wt 45.4 kg
--- NOTE | ~2017-06-26 | PROC NOTE ---
[place], [place] PROCEDURE NOTE NAME: BONI BARRETT [facility] #: [id number] UNIT #: [id number] ROOM: 408 DOCTOR: ALL LENTZ BIRTHDATE: [birth year] DOS: MODIFIED BARIUM SWALLOW BACKGROUND HISTORY AND MEDICAL HISTORY: Currently, she is diagnosed with acute renal failure, GERD, being underweight, CHF and COPD. The patient has a history of anxiety, CKD, CHF. She is currently on a regular diet and was just recently placed on BiPAP due to her complaints of difficulty breathing and her oxygen saturations levels dropping per nursing to the low 90s. METHODS AND MATERIALS: The patient was seated upright 90 degrees with max assist on a gurney. She was viewed in the lateral plane. This study was done in conjunction with radiologist, Dr. Moore. The patient was able to hold a cup and drink out of a straw with some assist and cues and she was able to follow simple commands. The patient was administered thin liquid via straw in independent single and sequential sips. She was administered pudding mixed with barium as well as a piece of a turkey sandwich mixed with barium. ORAL PHASE: The patient presents with mild to moderate delay in forming a bolus and mild to moderate reduced ability to form a cohesive bolus. She was able to masticate and chew with lateralization of the bolus. Tongue to palate contact was noted by her forming and posteriorly transferring a bolus was weak. During the chewing of the turkey sandwich, she was losing some of the oral residue left from the thin liquid barium. It fell slowly into the vallecula, but then when she finished chewing the solid or turkey sandwich and she propelled it and it fell into the vallecula, a swallow was triggered. With thin liquid, the liquid fell not in a cohesive bolus, it was more piecemeal, slowly filling the vallecula and it was about a 3-second delay from the start of filling up the vallecula until the vallecula was full with thin liquid that she triggered to swallow. There was trace residue on the base of the tongue, but no significant oral residue or residue within the pharynx. PHARYNGEAL PHASE: No significant pharyngeal residue. There was possibly an incident of flash transient penetration, but it cleared and she did cough with liquid via straw, but there was no aspiration or residue of barium noted in the trachea. The patient did produce a productive cough when a transient penetration was suspected. Laryngeal elevation appeared adequate. She had no significant residue in the pharynx. RECOMMENDATIONS AND IMPRESSION: Based on the above, it is recommended that the patient continue on regular thin liquids in single slow sips and not sequential sips. It is recommended physician consider a soft diet and supplements with natural pureed foods such as applesauce, oatmeal and puddings, as she appears to be in respiratory distress and she is very weak and becomes fatigued in the chewing of regular food and the completion of a meal with her respiratory issues may cause fatigue and lack of endurance. Speech pathology will follow at bedside for a few days for diet recommendations and strategies to maximize endurance during meals and to assess her during a meal to see how much time it takes her to complete a meal and make any more diet modifications based on respiratory issues and weakness. [place], [place] PROCEDURE NOTE NAME: BONI BARRETT [facility] UNIT #: [id number] ROOM: 408 DOCTOR: ALL LENTZ BIRTHDATE: [birth year] Thank you for this referral. ALL LENTZ CM:PROCNOTE:PROCEDURE NOTE [id number] ALL LENTZ
[~2017-06-26 13:21] MED LIST changes: -LASIX40 MG PO; +NORCO 5-325 TA1 EACH PO; +PRILOSEC20 M1 PO; +ZOFRAN4 MG PO
[2017-06-26 13:37] VITALS: BP 94/26
[2017-06-26 14:00] VITALS: BP 103/44
[2017-06-26 14:01] LABS: BASO % 0.5 % (0.0-1.0); EOS # 0.2 10*3/uL (0.0-0.4); EOS % 2.3 % (1.0-4.0); HEMATOCRIT 29.4 % (37.0-47.0); HEMOGLOBIN 9.3 g/dl (12.0-16.0); LYMPH # 1.4 10*3/uL (1.3-4.4); LYMPH % 18.6 % (27.0-41.0); MEAN CELL VOLUME 105.4 fl (81.0-99.0); MEAN CORPUSCULAR HGB 33.3 pg (27.0-31.0); MEAN CORPUSCULAR HGB CONC 31.6 g/dl (33.0-37.0); MEAN PLATELET VOLUME 10.3 fl (9.6-12.3); MONO # 0.9 10*3/uL (0.1-1.0); MONO % 11.5 % (3.0-9.0); NEUT # 5.2 10*3/uL (2.3-7.9); NEUT % 66.6 % (47.0-73.0); PLATELET COUNT AUTOMATED 149 10*3/uL (130-400); RED BLOOD COUNT 2.79 10*6/uL (4.10-5.10); RED CELL DISTRI WIDTH 13.8 % (0-14.5); WHITE BLOOD COUNT 7.8 10*3/uL (4.8-10.8)
[2017-06-26 14:09] LABS: ACT PARTIAL THROMBO TIME 33.1 SECONDS (20.8-31.5); INTERNATIONAL NORM RATIO 2.7 (2.0-3.5)
[2017-06-26 14:14] LABS: ALBUMIN 3.1 gm/dl (3.1-4.5); CREATININE 1.63 mg/dL (0.55-1.02); POTASSIUM 5.1 mmol/L (3.5-5.1); TOTAL PROTEIN 7.1 gm/dL (6.4-8.2)
[2017-06-26 14:45] VITALS: BP 121/73
[2017-06-26 15:05] LABS: BILIRUBIN NEGATIVE (NEGATIVE); BLOOD NEGATIVE (NEGATIVE); CLARITY CLEAR (CLEAR); COLOR YELLOW (YELLOW); GLUCOSE NEGATIVE (NEGATIVE); KETONE NEGATIVE (NEGATIVE); LEUKO ESTERASE 1+ (NEGATIVE); NITRITE NEGATIVE (NEGATIVE); SPECIFIC GRAVITY <= 1.005 (1.005-1.030); UROBILINOGEN 0.2 E.U./dl (0.2-1.0)
[2017-06-26 15:39] LABS: HYALINE CAST 15-20
[2017-06-26 16:45] VITALS: BP 106/42
[2017-06-26] MEDS ORDERED: DULE1ARO1 INH (17:17)
[2017-06-26] MEDS ORDERED: FLONASE ALLERG9.9 ML NAS (17:17)
[2017-06-26 20:00] VITALS: BP 113/48
[2017-06-27] VITALS: BP 123/52
[2017-06-27 06:38] LABS: BASO % 0.6 % (0.0-1.0); EOS # 0.2 10*3/uL (0.0-0.4); EOS % 3.3 % (1.0-4.0); HEMATOCRIT 26.8 % (37.0-47.0); HEMOGLOBIN 8.3 g/dl (12.0-16.0); LYMPH # 1.5 10*3/uL (1.3-4.4); LYMPH % 28.3 % (27.0-41.0); MEAN CELL VOLUME 107.6 fl (81.0-99.0); MEAN CORPUSCULAR HGB 33.3 pg (27.0-31.0); MEAN PLATELET VOLUME 10.3 fl (9.6-12.3); MONO # 0.7 10*3/uL (0.1-1.0); MONO % 12.7 % (3.0-9.0); NEUT # 2.8 10*3/uL (2.3-7.9); NEUT % 54.3 % (47.0-73.0); PLATELET COUNT AUTOMATED 139 10*3/uL (130-400); RED BLOOD COUNT 2.49 10*6/uL (4.10-5.10); RED CELL DISTRI WIDTH 13.7 % (0-14.5); WHITE BLOOD COUNT 5.1 10*3/uL (4.8-10.8)
[2017-06-27 07:02] LABS: BUN 19 mg/dl (7-24); CHLORIDE 105 mmol/L (98-107); CREATININE 1.08 mg/dL (0.55-1.02); PHOSPHOROUS 3.8 mg/dL (2.5-4.9); POTASSIUM 4.2 mmol/L (3.5-5.1); SODIUM 141 mmol/L (136-145)
[2017-06-27 07:06] LABS: INTERNATIONAL NORM RATIO 2.9 (2.0-3.5)
[2017-06-27 08:00] VITALS: BP 101/48
[2017-06-27 12:00] VITALS: BP 123/54
[2017-06-27 16:00] VITALS: BP 134/45
[2017-06-27 20:00] VITALS: BP 114/82
[2017-06-28] VITALS: BP 134/54
[2017-06-28 06:17] LABS: BASO % 0.4 % (0.0-1.0); EOS # 0.2 10*3/uL (0.0-0.4); EOS % 2.5 % (1.0-4.0); HEMATOCRIT 28.5 % (37.0-47.0); HEMOGLOBIN 8.9 g/dl (12.0-16.0); LYMPH % 15.1 % (27.0-41.0); MEAN CELL VOLUME 107.5 fl (81.0-99.0); MEAN CORPUSCULAR HGB 33.6 pg (27.0-31.0); MEAN CORPUSCULAR HGB CONC 31.2 g/dl (33.0-37.0); MEAN PLATELET VOLUME 9.9 fl (9.6-12.3); MONO # 0.7 10*3/uL (0.1-1.0); NEUT # 4.7 10*3/uL (2.3-7.9); NEUT % 70.4 % (47.0-73.0); PLATELET COUNT AUTOMATED 144 10*3/uL (130-400); RED BLOOD COUNT 2.65 10*6/uL (4.10-5.10); RED CELL DISTRI WIDTH 13.7 % (0-14.5); WHITE BLOOD COUNT 6.7 10*3/uL (4.8-10.8)
[2017-06-28 06:22] LABS: BUN 10 mg/dl (7-24); CHLORIDE 108 mmol/L (98-107); CREATININE 0.72 mg/dL (0.55-1.02); POTASSIUM 4.3 mmol/L (3.5-5.1); SODIUM 142 mmol/L (136-145)
[2017-06-28 06:38] LABS: INTERNATIONAL NORM RATIO 2.3 (2.0-3.5)
[2017-06-28 08:00] VITALS: BP 148/71
[2017-06-28 12:00] VITALS: BP 140/71
[2017-06-28 16:00] VITALS: BP 146/73
[2017-06-28 20:00] VITALS: BP 152/92
[2017-06-29] VITALS: BP 151/60
[2017-06-29 07:04] LABS: INTERNATIONAL NORM RATIO 2.2 (2.0-3.5)
[2017-06-29 07:06] LABS: BUN 7 mg/dl (7-24); CHLORIDE 106 mmol/L (98-107); CREATININE 0.66 mg/dL (0.55-1.02); POTASSIUM 4.3 mmol/L (3.5-5.1); SODIUM 141 mmol/L (136-145)
[2017-06-29 08:00] VITALS: BP 143/78
[2017-06-29 12:00] VITALS: BP 125/68
[2017-06-29 16:00] VITALS: BP 133/67
[2017-06-29 20:00] VITALS: BP 149/69
[2017-06-30] VITALS: BP 147/70
[2017-06-30 07:56] LABS: INTERNATIONAL NORM RATIO 3.1 (2.0-3.5)
[2017-06-30 08:00] VITALS: BP 160/74
[2017-06-30 10:42] LABS: BASO % 0.3 % (0.0-1.0); EOS # 0.1 10*3/uL (0.0-0.4); EOS % 0.4 % (1.0-4.0); HEMOGLOBIN 9.3 g/dl (12.0-16.0); LYMPH % 6.9 % (27.0-41.0); MEAN CELL VOLUME 105.6 fl (81.0-99.0); MEAN CORPUSCULAR HGB 32.7 pg (27.0-31.0); MEAN PLATELET VOLUME 9.8 fl (9.6-12.3); MONO # 0.9 10*3/uL (0.1-1.0); MONO % 6.6 % (3.0-9.0); NEUT # 11.8 10*3/uL (2.3-7.9); NEUT % 85.3 % (47.0-73.0); PLATELET COUNT AUTOMATED 131 10*3/uL (130-400); RED BLOOD COUNT 2.84 10*6/uL (4.10-5.10); RED CELL DISTRI WIDTH 13.6 % (0-14.5); WHITE BLOOD COUNT 13.8 10*3/uL (4.8-10.8)
[2017-06-30 10:58] LABS: ALBUMIN 2.7 gm/dl (3.1-4.5); ALKALINE PHOSPHATASE 87 U/L (45-117); BUN 8 mg/dl (7-24); CHLORIDE 109 mmol/L (98-107); PHOSPHOROUS 4.2 mg/dL (2.5-4.9); POTASSIUM 4.6 mmol/L (3.5-5.1); SGOT/AST 16 IU/L (3-35); SGPT/ALT 12 U/L (12-78); SODIUM 143 mmol/L (136-145); TOTAL PROTEIN 6.8 gm/dL (6.4-8.2)
[2017-06-30 10:59] LABS: TROPONIN I < 0.015 ng/ml (<0.045)
[2017-06-30 11:51] LABS: ABG BASE EXCESS -4.3 mmol/L (-2.0-2.0); ABG HCO3 22.6 mmol/l (22-26); ARTERIAL BLOOD GAS PCO2 53.3 mmHg (35-45); ARTERIAL BLOOD GAS PH 7.247 (7.35-7.45)
[2017-06-30 12:00] VITALS: BP 140/74
[2017-06-30 16:00] VITALS: BP 130/82
[2017-06-30 20:00] VITALS: BP 157/73
[2017-07-01] VITALS: BP 142/82
[2017-07-01 06:24] LABS: HEMATOCRIT 28.3 % (37.0-47.0); HEMOGLOBIN 8.6 g/dl (12.0-16.0); MEAN CORPUSCULAR HGB 33.5 pg (27.0-31.0); MEAN CORPUSCULAR HGB CONC 30.4 g/dl (33.0-37.0); MEAN PLATELET VOLUME 10.3 fl (9.6-12.3); PLATELET COUNT AUTOMATED 132 10*3/uL (130-400); RED BLOOD COUNT 2.57 10*6/uL (4.10-5.10); RED CELL DISTRI WIDTH 13.9 % (0-14.5); WHITE BLOOD COUNT 8.8 10*3/uL (4.8-10.8)
[2017-07-01 06:48] LABS: BUN 8 mg/dl (7-24); CHLORIDE 111 mmol/L (98-107); CREATININE 0.63 mg/dL (0.55-1.02); MEAN CELL VOLUME 110.1 fl (81.0-99.0); POTASSIUM 4.8 mmol/L (3.5-5.1); SODIUM 145 mmol/L (136-145)
[2017-07-01 07:06] LABS: INTERNATIONAL NORM RATIO 5.2 (2.0-3.5)
[2017-07-01 07:16] LABS: PLATELET SUFFICIENCY NORMAL (NORMAL); TOTAL CELLS COUNTED 100 #CELLS
[2017-07-01 08:00] VITALS: BP 150/70
[2017-07-01 12:00] VITALS: BP 154/60
[2017-07-01 16:00] VITALS: BP 148/79
[2017-07-01 20:00] VITALS: BP 142/71
[2017-07-02] VITALS: BP 140/80
[2017-07-02 06:27] LABS: HEMATOCRIT 28.6 % (37.0-47.0); HEMOGLOBIN 8.7 g/dl (12.0-16.0); MEAN CELL VOLUME 109.6 fl (81.0-99.0); MEAN CORPUSCULAR HGB 33.3 pg (27.0-31.0); MEAN CORPUSCULAR HGB CONC 30.4 g/dl (33.0-37.0); MEAN PLATELET VOLUME 10.4 fl (9.6-12.3); PLATELET COUNT AUTOMATED 153 10*3/uL (130-400); RED BLOOD COUNT 2.61 10*6/uL (4.10-5.10); RED CELL DISTRI WIDTH 14.1 % (0-14.5); WHITE BLOOD COUNT 8.6 10*3/uL (4.8-10.8)
[2017-07-02 07:01] LABS: INTERNATIONAL NORM RATIO 7.7 (2.0-3.5)
[2017-07-02 07:13] LABS: PLATELET SUFFICIENCY NORMAL (NORMAL); POLYCHROMASIA SLIGHT; TOTAL CELLS COUNTED 100 #CELLS
[2017-07-02 08:00] VITALS: BP 152/70
[2017-07-02 12:00] VITALS: BP 145/99
[2017-07-02] MEDS ORDERED: FUROSEMIDE10 MG/1 M1 IV (14:34)
[2017-07-02] MEDS ORDERED: Azithromycin500 MG IV (14:34)
[2017-07-02] MEDS ORDERED: AMERINET CHOICE1 GM IV (14:34)
[2017-07-02] MEDS ORDERED: ZOSYN 2/0.252.25 GM IV (14:34)
[2017-07-02] MEDS ORDERED: MECLIZINE HCL25 M2 PO (14:34)
[2017-07-02] MEDS ORDERED: TRANSDERM-SCOP1 EAC1 T (14:34)
== END 2017-07-02 17:23 | disposition short-term general hospital (02) | DRG 871 ==
LOC: ED 13:21 → EDHOLD 15:01 → 4E 15:01
PROVIDERS: Emergency Medicine; Internal Medicine; Internal Medicine Nephrology
PROC: BD1BYZZ Fluoroscopy of Mouth/Oropharynx using Other Contrast (ICD-10-PCS; principal; 2017-06-26)
PROC: 5A09357 Assistance with Respiratory Ventilation, Less than 24 Consecutive Hours, Continuous Positive Airway Pressure (ICD-10-PCS; 2017-07-01)
DX: A41.9 Sepsis, unspecified organism (principal); N17.0 Acute kidney failure with tubular necrosis; E43 Unspecified severe protein-calorie malnutrition; I13.0 Hypertensive heart and chronic kidney disease with heart failure and stage 1 through stage 4 chronic kidney disease, or unspecified chronic kidney disease; J18.1 Lobar pneumonia, unspecified organism; E87.8 Other disorders of electrolyte and fluid balance, not elsewhere classified; I27.20 Pulmonary hypertension, unspecified; I50.22 Chronic systolic (congestive) heart failure; F33.9 Major depressive disorder, recurrent, unspecified; J44.0 Chronic obstructive pulmonary disease with (acute) lower respiratory infection; Z68.1 Body mass index [BMI] 19.9 or less, adult; I48.2 Chronic atrial fibrillation; I95.1 Orthostatic hypotension; G25.81 Restless legs syndrome; K21.9 Gastro-esophageal reflux disease without esophagitis; N18.3 Chronic kidney disease, stage 3 (moderate); M47.9 Spondylosis, unspecified; R26.2 Difficulty in walking, not elsewhere classified; D53.9 Nutritional anemia, unspecified; E78.5 Hyperlipidemia, unspecified; G89.29 Other chronic pain; F41.9 Anxiety disorder, unspecified; M54.5 Low back pain; Z96.641 Presence of right artificial hip joint; I25.10 Atherosclerotic heart disease of native coronary artery without angina pectoris; Z95.2 Presence of prosthetic heart valve; Z86.711 Personal history of pulmonary embolism; Z86.718 Personal history of other venous thrombosis and embolism; Z99.81 Dependence on supplemental oxygen; Z88.8 Allergy status to other drugs, medicaments and biological substances; Z88.1 Allergy status to other antibiotic agents; Z79.899 Other long term (current) drug therapy; Z95.5 Presence of coronary angioplasty implant and graft; Z95.1 Presence of aortocoronary bypass graft; Z98.1 Arthrodesis status; Z80.8 Family history of malignant neoplasm of other organs or systems; Z82.49 Family history of ischemic heart disease and other diseases of the circulatory system; Z83.3 Family history of diabetes mellitus; Z87.01 Personal history of pneumonia (recurrent); Z79.51 Long term (current) use of inhaled steroids

== ENCOUNTER 2017-08-05 11:19 | Emergency (ER) | payer MEDICARE, BC ==
[~2017-08-05] VITALS: Ht 165.1 cm; Wt 43.1 kg
[~2017-08-05 11:19] MED LIST changes: +AMERINET CHOICE1 GM IV; +Azithromycin500 MG IV; +DULE1ARO1 INH; +FLONASE ALLERG9.9 ML NAS; +FUROSEMIDE10 MG/1 M1 IV; +MECLIZINE HCL25 M2 PO; +TRANSDERM-SCOP1 EAC1 T; +ZOSYN 2/0.252.25 GM IV
[2017-08-05 14:23] VITALS: BP 112/68
== END 2017-08-05 14:44 | disposition home or self-care (01) ==
LOC: ED 11:19
DX: M25.511 Pain in right shoulder (principal); M25.512 Pain in left shoulder; M54.6 Pain in thoracic spine; I25.10 Atherosclerotic heart disease of native coronary artery without angina pectoris; I13.0 Hypertensive heart and chronic kidney disease with heart failure and stage 1 through stage 4 chronic kidney disease, or unspecified chronic kidney disease; N18.3 Chronic kidney disease, stage 3 (moderate); I50.9 Heart failure, unspecified; I48.91 Unspecified atrial fibrillation; K21.9 Gastro-esophageal reflux disease without esophagitis; J45.909 Unspecified asthma, uncomplicated; E78.5 Hyperlipidemia, unspecified; Z86.718 Personal history of other venous thrombosis and embolism; Z88.1 Allergy status to other antibiotic agents; Z88.8 Allergy status to other drugs, medicaments and biological substances; Z79.899 Other long term (current) drug therapy

== ENCOUNTER → 2017-08-17 | Day surgery (SDC) | payer MEDICARE, BC ==
[~2017-08-17] VITALS: Ht 157.4 cm; Wt 41.7 kg
[~2017-08-17] MED LIST changes: +CYMBALTA60 MG PO; +DIGOXIN125 MCG PO; +FUROSEMIDE40 MG PO; +VITAMIN D400 I1 PO; +WARFARIN SODIUM4 MG PO
--- NOTE | ~2017-08-17 | PROC NOTE ---
[place], [place] PROCEDURE NOTE NAME: BONI BARRETT [facility] #: [id number] UNIT #: [id number] ROOM: DOCTOR: ADONAY DEL CID MD BIRTHDATE: [birth year] DOS: 08/17/2017 PREOPERATIVE DIAGNOSIS: Lower gastrointestinal bleed. POSTOPERATIVE DIAGNOSIS: Lower gastrointestinal bleed. PROCEDURE: Esophagogastroduodenoscopy, incomplete colonoscopy. ENDOSCOPIST: Adonay Del Cid MD ANESTHESIA: None. INDICATIONS: This is a 76-year-old lady with a history of lower GI bleed who comes in today for the above-mentioned procedure. She has got a history of previous peptic ulceration for which she is taking treatment. The procedure and its complications were explained to the patient in detail preoperatively. Complications that were discussed included but were not limited to, bleeding, colon perforation, stomach perforation, and missed lesions. She agreed to proceed. DESCRIPTION OF PROCEDURE: After identifying the patient, the patient was brought to the operating suite and laid in the supine position. After IV sedation was administered, a timeout procedure was called and the patient was turned to her left lateral position. A bite block was placed and an adult gastroscope was now introduced through the mouth and advanced sequentially into the pharynx, esophagus, stomach and the first 2 parts of the duodenum. The duodenum was within normal limits. There were no obvious bleeding points that could be seen. Upon withdrawal of the scope into the stomach, there were no obvious ulcerations or bleeding that could be seen. There was mild gastritis in the antrum. These findings were confirmed upon retroflexion of the scope and the other parts of the stomach were visualized completely. Upon withdrawal of the scope into the esophagus was found to be a small hiatal hernia, but again there was no bleeding areas that could be visualized. The scope was then withdrawn and the colonoscopy was attempted. This was done after rectal exam was performed, which showed external hemorrhoids, but no active bleeding. An adult colonoscope was now introduced into the anal canal right away. The prep was found to be suboptimal and there was inadequate visualization of the mucosa. At this point, the colonoscope was withdrawn and the patient was brought back to the recovery room in stable fashion. There were no complications. Dr. Adonay Del Cid, the attending endoscopist, was present throughout the operating case. Based on these findings, the patient's family was recommended to have another colonoscopy with a different prep at a later date, which will be discussed with the patient as well. [place], [place] PROCEDURE NOTE NAME: BONI BARRETT UNIT #: [id number] ROOM: DOCTOR: ADONAY DEL CID MD BIRTHDATE: [birth year] Adonay Del Cid MD CM:PROCNOTE:PROCEDURE NOTE [id number] ADONAY DEL CID MD
[2017-08-17 07:11] VITALS: BP 133/53
[2017-08-17 07:48] VITALS: BP 143/53
[2017-08-17 08:02] VITALS: BP 120/46
[2017-08-17 08:18] VITALS: BP 112/55
== END ==
LOC: SDC 08-13 14:00
DX: K29.70 Gastritis, unspecified, without bleeding (principal); K92.2 Gastrointestinal hemorrhage, unspecified; K44.9 Diaphragmatic hernia without obstruction or gangrene; K64.8 Other hemorrhoids; I25.10 Atherosclerotic heart disease of native coronary artery without angina pectoris; Z95.810 Presence of automatic (implantable) cardiac defibrillator; I11.0 Hypertensive heart disease with heart failure; I50.9 Heart failure, unspecified; F41.9 Anxiety disorder, unspecified; J44.9 Chronic obstructive pulmonary disease, unspecified; I48.91 Unspecified atrial fibrillation; Z95.2 Presence of prosthetic heart valve; Z95.5 Presence of coronary angioplasty implant and graft; F32.9 Major depressive disorder, single episode, unspecified; Z98.890 Other specified postprocedural states; Z80.9 Family history of malignant neoplasm, unspecified; Z82.49 Family history of ischemic heart disease and other diseases of the circulatory system

== ENCOUNTER 2017-08-22 16:48 | Emergency (ER) | payer MEDICARE, BC ==
[~2017-08-22] VITALS: Wt 41.7 kg
[2017-08-22 16:59] VITALS: BP 135/59
[2017-08-22] MEDS ORDERED: DULE1ARO1 INH (17:24)
[2017-08-22] MEDS ORDERED: VITAMIN D50000 UNIT PO (17:25)
[2017-08-22] MEDS ORDERED: OMEPRAZOLE20 M2 PO (17:26)
[2017-08-22] MEDS ORDERED: LIPITOR20 MG PO (17:26)
[2017-08-22] MEDS ORDERED: CALCIUM 600 +1 EACH PO (17:26)
[2017-08-22] MEDS ORDERED: POTASSIUM CHLO10 MEQ PO (17:27)
[2017-08-22] MEDS ORDERED: DIOVAN40 MG PO (17:27)
[2017-08-22 18:00] LABS: HEMATOCRIT 27.4 % (37.0-47.0); HEMOGLOBIN 8.4 g/dl (12.0-16.0); MEAN CELL VOLUME 108.3 fl (81.0-99.0); MEAN CORPUSCULAR HGB 33.2 pg (27.0-31.0); MEAN CORPUSCULAR HGB CONC 30.7 g/dl (33.0-37.0); MEAN PLATELET VOLUME 10.2 fl (9.6-12.3); PLATELET COUNT AUTOMATED 148 10*3/uL (130-400); RED BLOOD COUNT 2.53 10*6/uL (4.10-5.10); RED CELL DISTRI WIDTH 13.3 % (0-14.5); WHITE BLOOD COUNT 6.6 10*3/uL (4.8-10.8)
[2017-08-22 18:19] LABS: ALBUMIN 2.8 gm/dl (3.1-4.5); ALKALINE PHOSPHATASE 89 U/L (45-117); BUN 6 mg/dl (7-24); CHLORIDE 100 mmol/L (98-107); CREATININE 0.77 mg/dL (0.55-1.02); POTASSIUM 4.3 mmol/L (3.5-5.1); SGOT/AST 18 IU/L (3-35); SGPT/ALT 11 U/L (12-78); SODIUM 139 mmol/L (136-145); TOTAL PROTEIN 7.1 gm/dL (6.4-8.2); TROPONIN I 0.026 ng/ml (<0.045)
[2017-08-22 18:24] LABS: INTERNATIONAL NORM RATIO 1.5 (2.0-3.5)
[2017-08-22 18:27] LABS: ATYPICAL LYMPHS 1 % (0-0); PLATELET SUFFICIENCY NORMAL (NORMAL); TOTAL CELLS COUNTED 100 #CELLS
[2017-08-22 19:07] LABS: ACT PARTIAL THROMBO TIME 27.5 SECONDS (20.8-31.5)
== END 2017-08-22 19:21 | disposition home or self-care (01) ==
LOC: ED 16:48
PROVIDERS: Emergency Medicine
DX: R06.02 Shortness of breath (principal); R53.1 Weakness; J44.9 Chronic obstructive pulmonary disease, unspecified; I13.0 Hypertensive heart and chronic kidney disease with heart failure and stage 1 through stage 4 chronic kidney disease, or unspecified chronic kidney disease; N18.3 Chronic kidney disease, stage 3 (moderate); I50.9 Heart failure, unspecified; E78.5 Hyperlipidemia, unspecified; K21.9 Gastro-esophageal reflux disease without esophagitis; I25.10 Atherosclerotic heart disease of native coronary artery without angina pectoris; I48.91 Unspecified atrial fibrillation; Z86.718 Personal history of other venous thrombosis and embolism; Z88.6 Allergy status to analgesic agent; Z88.1 Allergy status to other antibiotic agents; Z79.899 Other long term (current) drug therapy; Z79.02 Long term (current) use of antithrombotics/antiplatelets

== ENCOUNTER 2017-08-25 14:12 | Emergency (ER) | payer MEDICARE, BC ==
[~2017-08-25] VITALS: Ht 157.4 cm; Wt 41.3 kg
[~2017-08-25 14:12] MED LIST changes: +CALCIUM 600 +1 EACH PO; +DIOVAN40 MG PO; +OMEPRAZOLE20 M2 PO; +POTASSIUM CHLO10 MEQ PO; +VITAMIN D50000 UNIT PO
[2017-08-25 14:20] VITALS: BP 136/65
[2017-08-25 15:12] LABS: BASO % 0.4 % (0.0-1.0); EOS # 0.3 10*3/uL (0.0-0.4); EOS % 2.9 % (1.0-4.0); HEMATOCRIT 30.1 % (37.0-47.0); HEMOGLOBIN 9.5 g/dl (12.0-16.0); LYMPH % 21.9 % (27.0-41.0); MEAN CELL VOLUME 106.7 fl (81.0-99.0); MEAN CORPUSCULAR HGB 33.7 pg (27.0-31.0); MEAN CORPUSCULAR HGB CONC 31.6 g/dl (33.0-37.0); MEAN PLATELET VOLUME 9.7 fl (9.6-12.3); MONO # 0.9 10*3/uL (0.1-1.0); MONO % 9.3 % (3.0-9.0); NEUT # 5.9 10*3/uL (2.3-7.9); NEUT % 65.3 % (47.0-73.0); PLATELET COUNT AUTOMATED 188 10*3/uL (130-400); RED BLOOD COUNT 2.82 10*6/uL (4.10-5.10); RED CELL DISTRI WIDTH 13.1 % (0-14.5); WHITE BLOOD COUNT 9.1 10*3/uL (4.8-10.8)
[2017-08-25 15:26] LABS: ALBUMIN 3.3 gm/dl (3.1-4.5); ALKALINE PHOSPHATASE 101 U/L (45-117); BUN 10 mg/dl (7-24); CHLORIDE 98 mmol/L (98-107); CREATININE 0.94 mg/dL (0.55-1.02); INTERNATIONAL NORM RATIO 2.5 (2.0-3.5); LIPASE 146 U/L (73-393); SGOT/AST 19 IU/L (3-35); SGPT/ALT 13 U/L (12-78); SODIUM 138 mmol/L (136-145)
[2017-08-25 15:37] LABS: BILIRUBIN NEGATIVE (NEGATIVE); BLOOD NEGATIVE (NEGATIVE); CLARITY CLEAR (CLEAR); COLOR YELLOW (YELLOW); GLUCOSE NEGATIVE (NEGATIVE); KETONE NEGATIVE (NEGATIVE); LEUKO ESTERASE NEGATIVE (NEGATIVE); NITRITE NEGATIVE (NEGATIVE); SPECIFIC GRAVITY 1.015 (1.005-1.030); UROBILINOGEN 0.2 E.U./dl (0.2-1.0)
[2017-08-25 15:58] LABS: BACTERIA TRACE; HYALINE CAST TNTC
== END 2017-08-25 16:21 | disposition home or self-care (01) ==
LOC: ED 14:12
PROVIDERS: Physician Assistant
DX: K57.30 Diverticulosis of large intestine without perforation or abscess without bleeding (principal); R10.84 Generalized abdominal pain; Z98.890 Other specified postprocedural states; Z96.641 Presence of right artificial hip joint; Z95.1 Presence of aortocoronary bypass graft; Z95.0 Presence of cardiac pacemaker; Z90.710 Acquired absence of both cervix and uterus; Z79.899 Other long term (current) drug therapy; Z79.01 Long term (current) use of anticoagulants; Z88.5 Allergy status to narcotic agent; Z88.1 Allergy status to other antibiotic agents

== ENCOUNTER → 2017-09-03 | Day surgery (SDC) | payer MEDICARE, BC ==
[~2017-09-03] VITALS: Wt 41.3 kg
--- NOTE | ~2017-09-03 | PROC NOTE ---
[place], [place] PROCEDURE NOTE NAME: BONI BARRETT [facility] #: [id number] UNIT #: [id number] ROOM: DOCTOR: ADONAY DEL CID MD BIRTHDATE: [birth year] DOS: 09/03/2017 PREOPERATIVE DIAGNOSIS: Lower gastrointestinal bleed. POSTOPERATIVE DIAGNOSIS: Lower gastrointestinal bleed. PROCEDURE: Colonoscopy. ENDOSCOPIST: Adoany Del Cid MD AGATE SETTER: ARA. ANESTHESIA: MAC. INDICATIONS: This is a 76-year-old lady who is here for a workup for lower GI bleed. The procedure and its complications were explained to the patient in detail preoperatively. Complications that were discussed included but were not limited to, bleeding, colon perforation, and missed lesion. She agreed to proceed. DESCRIPTION OF PROCEDURE: After identifying the patient, the patient was brought to the endoscopy suite and placed in the left lateral position. After IV sedation was administered, a time-out procedure was called. A digital rectal exam was performed, which was within normal limits. An adult colonoscope was now introduced into the anal canal and advanced sequentially into the rectum, sigmoid colon, descending colon, transverse colon and ascending colon up to the cecum. The prep was found to be optimal. Upon reaching the cecum, the scope was withdrawn. Total withdrawal time was 6 minutes. There were no obvious bleeding areas, polyps, tumors or any other lesions that could be seen. There was mild diverticulosis in the sigmoid colon, which did not have any evidence of any active or recent bleed. The scope was then withdrawn and the patient was taken to the recovery room in stable fashion. There were no complications. Dr. Adonay Del Cid, the attending endoscopist, was present throughout the operating case. Based on these findings, the patient is recommended to have another colonoscopy, only if she gets symptomatic with other issues. These findings were discussed with the patient's family in the recovery room. Adonay Del Cid MD CM:PROCNOTE:PROCEDURE NOTE [id number] ADONAY DEL CID MD
[2017-09-03 07:23] VITALS: BP 161/59
[2017-09-03 08:20] VITALS: BP 118/47
[2017-09-03 08:35] VITALS: BP 131/56
[2017-09-03 08:51] VITALS: BP 134/60
== END ==
LOC: SDC 08-31 10:15
DX: K57.30 Diverticulosis of large intestine without perforation or abscess without bleeding (principal); I48.2 Chronic atrial fibrillation; Z95.0 Presence of cardiac pacemaker; Z95.2 Presence of prosthetic heart valve; Z79.01 Long term (current) use of anticoagulants; Z95.5 Presence of coronary angioplasty implant and graft; Z96.641 Presence of right artificial hip joint; I25.10 Atherosclerotic heart disease of native coronary artery without angina pectoris; I11.0 Hypertensive heart disease with heart failure; I50.9 Heart failure, unspecified; I48.91 Unspecified atrial fibrillation; K21.9 Gastro-esophageal reflux disease without esophagitis; J44.9 Chronic obstructive pulmonary disease, unspecified; F41.9 Anxiety disorder, unspecified; F32.9 Major depressive disorder, single episode, unspecified; Z98.890 Other specified postprocedural states; Z79.899 Other long term (current) drug therapy; Z88.8 Allergy status to other drugs, medicaments and biological substances

== ENCOUNTER 2017-09-09 16:52 | Emergency (ER) | payer MEDICARE, BC ==
[~2017-09-09] VITALS: Wt 45.4 kg
[2017-09-09 17:28] LABS: BASO % 0.4 % (0.0-1.0); EOS # 0.1 10*3/uL (0.0-0.4); EOS % 1.2 % (1.0-4.0); HEMATOCRIT 28.5 % (37.0-47.0); HEMOGLOBIN 8.8 g/dl (12.0-16.0); LYMPH # 1.9 10*3/uL (1.3-4.4); LYMPH % 17.4 % (27.0-41.0); MEAN CELL VOLUME 107.5 fl (81.0-99.0); MEAN CORPUSCULAR HGB 33.2 pg (27.0-31.0); MEAN CORPUSCULAR HGB CONC 30.9 g/dl (33.0-37.0); MEAN PLATELET VOLUME 9.1 fl (9.6-12.3); MONO # 0.8 10*3/uL (0.1-1.0); MONO % 7.2 % (3.0-9.0); NEUT % 72.9 % (47.0-73.0); PLATELET COUNT AUTOMATED 296 10*3/uL (130-400); RED BLOOD COUNT 2.65 10*6/uL (4.10-5.10); RED CELL DISTRI WIDTH 13.5 % (0-14.5); WHITE BLOOD COUNT 10.9 10*3/uL (4.8-10.8)
[2017-09-09 17:37] LABS: INTERNATIONAL NORM RATIO 2.3 (2.0-3.5)
[2017-09-09 17:46] LABS: ALBUMIN 2.7 gm/dl (3.1-4.5); ALKALINE PHOSPHATASE 115 U/L (45-117); BUN 11 mg/dl (7-24); CHLORIDE 104 mmol/L (98-107); CREATININE 1.04 mg/dL (0.55-1.02); POTASSIUM 4.6 mmol/L (3.5-5.1); SGOT/AST 19 IU/L (3-35); SGPT/ALT 15 U/L (12-78); SODIUM 140 mmol/L (136-145); TOTAL PROTEIN 7.8 gm/dL (6.4-8.2)
[2017-09-09 17:49] LABS: TROPONIN I < 0.015 ng/ml (<0.045)
[2017-09-09 18:00] LABS: BILIRUBIN NEGATIVE (NEGATIVE); BLOOD NEGATIVE (NEGATIVE); CLARITY CLEAR (CLEAR); COLOR YELLOW (YELLOW); GLUCOSE NEGATIVE (NEGATIVE); KETONE NEGATIVE (NEGATIVE); LEUKO ESTERASE NEGATIVE (NEGATIVE); NITRITE NEGATIVE (NEGATIVE); UROBILINOGEN 0.2 E.U./dl (0.2-1.0)
[2017-09-09 18:07] VITALS: BP 142/70
[2017-09-09 18:07] LABS: RBC 0-2 rbc/hpf (0-2)
[2017-09-09 18:08] LABS: BACTERIA 2+; EPITHELIAL CELLS 0-2
[2017-09-09] MEDS ORDERED: DUONEB 3 MG/3 ML3 M1 INH (18:27)
[2017-09-09] MEDS ORDERED: DELTASONE20 M1 PO (18:27)
[2017-09-09] MEDS ORDERED: VIBRAMYCIN100 MG PO (18:27)
== END 2017-09-09 18:47 | disposition home or self-care (01) ==
LOC: ED 16:52
PROVIDERS: Physician Assistant
DX: R06.02 Shortness of breath (principal); Z88.1 Allergy status to other antibiotic agents; Z88.8 Allergy status to other drugs, medicaments and biological substances; Z79.899 Other long term (current) drug therapy; Z79.02 Long term (current) use of antithrombotics/antiplatelets

== ENCOUNTER → 2017-09-23 | Outpatient (CLI) | payer MEDICARE, BC ==
[~2017-09-23] MED LIST changes: +DELTASONE20 M1 PO
== END | disposition home or self-care (01) ==
LOC: RAD 16:11
DX: M48.061 Spinal stenosis, lumbar region without neurogenic claudication (principal); M54.6 Pain in thoracic spine; Z98.890 Other specified postprocedural states

== ENCOUNTER 2017-10-02 14:16 | Inpatient (IN) | payer MEDICARE, BC ==
[~2017-10-02] VITALS: Ht 157.4 cm; Wt 40.9 kg
[2017-10-02] VITALS (8 sets, daily range): BP systolic 128–157; BP diastolic 45–65
--- NOTE | ~2017-10-02 | PR ---
[place], [place] PROGRESS NOTE NAME: BONI BARRETT [facility] #: [id number] UNIT #: [id number] ROOM: 508 DOCTOR: NAHOMY CARREON MD BIRTHDATE: [birth year] DOS: 10/05/2017 REASON FOR VISIT: CHF. SUBJECTIVE: The patient is feeling better. Denies any chest pain, shortness of breath. No nausea, vomiting, no fever and chills. No PND, no orthopnea. REVIEW OF SYSTEMS: Review of the 8 systems negative except as mentioned above. PHYSICAL EXAMINATION: VITAL SIGNS: Blood pressure 150/64, pulse 61, respiratory rate was 20. RHYTHM STRIPS: The patient in sinus rhythm. GENERAL: Alert, comfortable, in no acute distress. HEENT: Pupils are round and equal. No jaundice. NECK: Supple. The patient no carotid bruit. The patient has elevated neck veins. CHEST: Symmetrical, nontender. ICD site is unremarkable near the left infraclavicular area. LUNGS: A few scattered rhonchi and slightly diminished at bases. HEART: Regular rhythm, no S3, grade 2/6 systolic murmur. No palpable thrills. ABDOMEN: Benign, nontender. Bowel sounds normal. EXTREMITIES: Showed no edema. Distal pulses palpable. SKIN: Warm and dry. No cyanosis, no clubbing. RECTAL: Deferred. GENITOURINARY: Deferred. Medications and labs reviewed. Her hemoglobin 13 and INR 1.6. IMPRESSION: 1. Acute on chronic systolic heart failure, resolved. 2. Coronary artery disease status post bypass surgery, stable. 3. Status post mitral valve replacement, bioprosthetic valve, moderate mitral stenosis by echo. 4. Moderate pulmonary hypertension. 5. Paroxysmal atrial fibrillation. 6. Anemia. RECOMMENDATIONS: 1. Change her Lasix to p.o. and also decrease to 40 mg once daily. 2. Continue rest of her cardiac medications. 3. Keep PT between 2-3. 4. She can be discharged from the cardiac standpoint and follow up with Dr. Garcia in 1 to 2 weeks. 5. She was also advised to have her ICD interrogations done either at 6 months or at least every 12 months at our [place] office. 6. Discussed with her family, her son who was at bedside and all questions were answered. [place], [place] PROGRESS NOTE NAME: BONI BARRETT UNIT #: [id number] ROOM: 508 DOCTOR: NAHOMY CARREON MD BIRTHDATE: [birth year] NAHOMY CARREON MD CM:PNPOLINA [phone] NAHOMY CARREON MD 10/06/17939 interface
--- NOTE | ~2017-10-02 | PR ---
[place], [place] PROGRESS NOTE NAME: BONI BARRETT UNIT #: [id number] ROOM: 508 DOCTOR: NAHOMY CARREON MD BIRTHDATE: [birth year] DOS: 10/06/2017 REASON FOR VISIT: Cardiomyopathy and CHF. SUBJECTIVE: The patient is feeling better. Denies any chest pain. Still short of breath, but much better than a couple of days ago. No PND, no orthopnea. She is anticipating discharge. REVIEW OF SYSTEMS: Review of the 8 systems negative except as mentioned above. PHYSICAL EXAMINATION: VITAL SIGNS: Blood pressure 140/66, pulse 81, respiratory rate 20. Rhythm strips, the patient was ventricular pacing on the monitor. GENERAL: Alert, comfortable, in no acute distress except mild short of breath while communicating. HEENT: Pupils are equal, no jaundice. NECK: Supple. The patient has elevated neck veins. No carotid bruit. CHEST: Symmetrical, nontender. ICD site is unremarkable near the left infraclavicular area. LUNGS: Clear to auscultation bilaterally. HEART: Regular rhythm, no S3, and grade 2/6 systolic murmur. ABDOMEN: Benign, nontender. Bowel sounds normal. EXTREMITIES: No edema. Distal pulses palpable. SKIN: Warm and dry. No cyanosis, no clubbing. MEDICATIONS AND LABS: Reviewed. IMPRESSION: 1. Cfyfm-sn-nfienyt congestive heart failure, resolved. 2. Valvular heart disease, status post mitral valve replacement, bioprosthetic valve. 3. Pulmonary hypertension. 4. Paroxysmal atrial fibrillation. 5. Coronary artery disease status post bypass surgery. 6. Status post ICD implant. 7. Anemia. RECOMMENDATIONS: Her INR is 2.0 today. Hemoglobin 10.0 and the creatinine 0.7. Continue current medications. She can be discharged from the cardiac standpoint. Keep her INR between 2-3 range. She will follow up with Dr. Garcia and also with our ____ for ICD checkups. There is no family at bedside at the time of my examination. [place], [place] PROGRESS NOTE NAME: BONI BARRETT UNIT #: [id number] ROOM: 508 DOCTOR: NAHOMY CARREON MD BIRTHDATE: [birth year] NAHOMY CARREON MD CM:YARI [id number] NAHOMY CARREON MD 10/08/17 0258 interface
--- NOTE | ~2017-10-02 | CON ---
[place], [place] REPORT OF CONSULTATION NAME: BONI BARRETT UNIT #: [id number] ROOM: 508 DOCTOR: NAHOMY CARREON MD BIRTHDATE: [birth year] DOS: 10/04/2017 CARDIOLOGY CONSULTATION. REASON FOR CONSULTATION: CHF. HISTORY OF PRESENT ILLNESS: The patient is a 76-year-old patient with history of cardiomyopathy, atrial fibrillation, coronary artery disease status post ICD, pulmonary hypertension, valvular heart disease, came to the hospital because of shortness of breath. She also had history of COPD and on 3 liters of home oxygen. For the past couple of days, she is having progressive shortness of breath and also some nighttime having productive cough but she denies any chest pain, palpitation, or dizziness. No PND, no orthopnea. No nausea, vomiting, or diarrhea. No headaches. No neurologic symptoms. No bladder or bowel symptoms. She was on Coumadin for her DVT and pulmonary emboli as well as atrial fibrillation. In the Emergency Room, she was noted to have severe anemia with hemoglobin of 7.8 and she received some packed red blood cells. Cardiology consulted for further recommendations due to her congestive heart failure. REVIEW OF SYSTEMS: Review of the 10 systems negative except as mentioned above. PAST MEDICAL HISTORY: 1. Coronary artery disease, status post bypass surgery. 2. Valvular heart disease, status post mitral valve replacement. 3. Paroxysmal atrial fibrillation. 4. Cardiomyopathy. 5. Status post ICD last year. 6. Anemia. 7. Hypertension. 8. History of back surgery as well as cervical fusion. 9. History of IVC filter. PAST SURGICAL HISTORY: 1. History of bypass surgery. 2. Mitral valve replacement. 3. Laminectomy. 4. Cervical fusion. 5. Kyphoplasty. 6. Right hip replacement. 7. Partial hysterectomy. ALLERGIES: The patient is allergic to LEVOFLOXACIN and HYDROMORPHINE. FAMILY HISTORY: Nil contributory to her age and her history but father at the age of 73. Mother at the age of 69. Sister at the age of 69. MEDICATIONS: Reviewed. PHYSICAL EXAMINATION: [place], [place] REPORT OF CONSULTATION NAME: BONI BARRETT UNIT #: [id number] ROOM: 508 DOCTOR: VELMA QURESHI,AMBERDONAVON BIRTHDATE: [birth year] VITAL SIGNS: Blood pressure 152/54, pulse 71, respirations 20. Weight 40.8 kilos, BMI 16. GENERAL: The patient is alert, comfortable, in no acute distress, slightly short of breath. HEENT: Pupils round, equal. No jaundice. Tongue was moist and pharynx clear. NECK: Supple. The patient has elevated neck veins. No carotid bruits. CHEST: Symmetrical, nontender. ICD site is unremarkable near the left infraclavicular area. LUNGS: A few scattered rhonchi. Good air entry bilaterally. HEART: Regular rhythm, no S3, grade 2/6 systolic murmur. No S3, no palpable thrills. ABDOMEN: Benign, nontender. Bowel sounds normal. EXTREMITIES: Showed no edema. Distal pulses palpable. SKIN: Warm and dry. No cyanosis, no clubbing. RECTAL: Deferred. GENITOURINARY: Deferred. REVIEW OF THE DIAGNOSTIC TESTS: EKG showed AV pacing. Her labs and imaging studies reviewed. Hemoglobin on admission was 7.8, currently it is 9.5. Creatinine 0.63, potassium 3.7. INR 1.7. IMPRESSION: 1. Acute on chronic systolic and diastolic heart failure, EF is 45% by echo in 06/2007. 2. Severe anemia, status post packed red blood cell transfusion. 3. Valvular heart disease, history of mitral valve replacement with a recent echo showed moderate mitral stenosis. 4. Moderate pulmonary hypertension. 5. Coronary artery disease, status post bypass surgery. 6. Paroxysmal atrial fibrillation. 7. History of deep vein thrombosis and pulmonary emboli. 8. Coronary artery disease status post bypass surgery. 9. Status post ICD implant. 10. History of chronic obstructive pulmonary disease with home oxygen. RECOMMENDATIONS: 1. Continue her diuretics and monitor her daily weights, ins and outs and renal function. 2. Keep her hemoglobin more than 8 grams and also INR greater than 2. 3. The patient was not on aspirin due to her Coumadin. 4. Continue her Coreg and ARBs. 5. No further cardiac testing. 6. next 24-48 hours. 7. She will follow up with Dr. Garcia . She was advised to follow with EP for her ICD. Above treatment was discussed with the patient and her family member who is at bedside and all questions were answered. [place], [place] REPORT OF CONSULTATION NAME: BONI BARRETT UNIT #: [id number] ROOM: 508 DOCTOR: VELMA QURESHI,NAHOMY BIRTHDATE: [birth year] NAHOMY CARREON MD CM:CONSTR:REPORT OF CONSULTATION [id number] 10/05/17 2126 interface
--- NOTE | ~2017-10-02 | EKG ---
[place], [place] ELECTROCARDIOGRAM REPORT NAME: BONI BARRETT UNIT #: [id number] ROOM: 508 DOCTOR: VELMA QURESHI,NAHOMY BIRTHDATE: [birth year] DOS: 10/02/2017 TIME: 1451 IMPRESSION: AV sequential pacing. NAHOMY CARREON MD CM:EKGRPT:ELECTROCARDIOGRAM REPORT [id number] NAHOMY CARREON MD
[2017-10-02] MEDS ORDERED: TRAMADOL HCL50 MG PO (14:36)
[2017-10-02 14:56] LABS: HEMATOCRIT 25.8 % (37.0-47.0); HEMOGLOBIN 7.8 g/dl (12.0-16.0); MEAN CELL VOLUME 108.9 fl (81.0-99.0); MEAN CORPUSCULAR HGB 32.9 pg (27.0-31.0); MEAN CORPUSCULAR HGB CONC 30.2 g/dl (33.0-37.0); MEAN PLATELET VOLUME 10.2 fl (9.6-12.3); PLATELET COUNT AUTOMATED 157 10*3/uL (130-400); RED BLOOD COUNT 2.37 10*6/uL (4.10-5.10); RED CELL DISTRI WIDTH 14.1 % (0-14.5); WHITE BLOOD COUNT 6.2 10*3/uL (4.8-10.8)
[2017-10-02 15:04] LABS: ACT PARTIAL THROMBO TIME 28.3 SECONDS (20.8-31.5); INTERNATIONAL NORM RATIO 1.6 (2.0-3.5)
[2017-10-02 15:15] LABS: BASOPHILS 1 % (0-1); TOTAL CELLS COUNTED 100 #CELLS
[2017-10-02 15:16] LABS: OVALOCYTES FEW; PLATELET SUFFICIENCY NORMAL (NORMAL)
[2017-10-02 15:17] LABS: MICROCYTOSIS SLIGHT; POLYCHROMASIA SLIGHT; STOMATOCYTE FEW
[2017-10-02 15:18] LABS: ALBUMIN 2.8 gm/dl (3.1-4.5); ALKALINE PHOSPHATASE 87 U/L (45-117); BUN 10 mg/dl (7-24); CHLORIDE 105 mmol/L (98-107); CREATININE 0.71 mg/dL (0.55-1.02); LIPASE 105 U/L (73-393); POTASSIUM 3.5 mmol/L (3.5-5.1); SGOT/AST 19 IU/L (3-35); SGPT/ALT 17 U/L (12-78); SODIUM 141 mmol/L (136-145); TOTAL PROTEIN 6.7 gm/dL (6.4-8.2)
[2017-10-02 15:19] LABS: BILIRUBIN NEGATIVE (NEGATIVE); BLOOD TRACE-LYSED (NEGATIVE); CLARITY SL CLOUDY (CLEAR); COLOR YELLOW (YELLOW); GLUCOSE NEGATIVE (NEGATIVE); KETONE NEGATIVE (NEGATIVE); LEUKO ESTERASE TRACE (NEGATIVE); NITRITE NEGATIVE (NEGATIVE); SPECIFIC GRAVITY 1.015 (1.005-1.030); UROBILINOGEN 0.2 E.U./dl (0.2-1.0)
[2017-10-02 15:22] LABS: TROPONIN I < 0.015 ng/ml (<0.045)
[2017-10-02 15:56] LABS: BACTERIA 2+; HYALINE CAST TNTC; RBC 0-2 rbc/hpf (0-2)
[2017-10-02] MEDS ORDERED: ZOLOFT100 MG PO (17:50)
[2017-10-02] MEDS ORDERED: OMEPRAZOLE20 M2 PO (17:51)
[2017-10-02] MEDS ORDERED: LOSARTAN POTASS50 M1 PO (17:52)
[2017-10-02] MEDS ORDERED: BENADRYL ALLERG25 M5 PO (17:53)
[2017-10-03] VITALS (7 sets, daily range): BP systolic 128–160; BP diastolic 54–68
[2017-10-03 02:15] LABS: HEMATOCRIT 30.7 % (37.0-47.0); HEMATOCRIT 31.4 % (37.0-47.0); HEMOGLOBIN 9.7 g/dl (12.0-16.0); HEMOGLOBIN 9.8 g/dl (12.0-16.0); MEAN CORPUSCULAR HGB 31.9 pg (27.0-31.0); MEAN CORPUSCULAR HGB CONC 31.2 g/dl (33.0-37.0); MEAN PLATELET VOLUME 10.2 fl (9.6-12.3); PLATELET COUNT AUTOMATED 155 10*3/uL (130-400); RED BLOOD COUNT 3.07 10*6/uL (4.10-5.10); RED CELL DISTRI WIDTH 15.3 % (0-14.5); WHITE BLOOD COUNT 5.9 10*3/uL (4.8-10.8)
[2017-10-03 02:20] LABS: INTERNATIONAL NORM RATIO 1.7 (2.0-3.5)
[2017-10-03 02:22] LABS: MEAN CELL VOLUME 102.3 fl (81.0-99.0)
[2017-10-03 02:24] LABS: BUN 8 mg/dl (7-24); CHLORIDE 101 mmol/L (98-107); CREATININE 0.64 mg/dL (0.55-1.02); POTASSIUM 3.4 mmol/L (3.5-5.1); SODIUM 140 mmol/L (136-145)
[2017-10-03 02:29] LABS: PHOSPHOROUS 2.9 mg/dL (2.5-4.9)
[2017-10-03 02:35] LABS: THYROID STIM HORMONE (HS) 0.488 uIU/ml (0.358-4.75)
[2017-10-03 02:46] LABS: PLATELET SUFFICIENCY NORMAL (NORMAL); TOTAL CELLS COUNTED 100 #CELLS
[2017-10-03 07:54] LABS: VITAMIN D, 25-HYDROXY 46.4 ng/mL (30-100)
[2017-10-04] VITALS: BP 152/59
[2017-10-04 06:39] LABS: HEMATOCRIT 30.2 % (37.0-47.0); HEMOGLOBIN 9.5 g/dl (12.0-16.0); LYMPH # 0.6 10*3/uL (1.3-4.4); LYMPH % 8.7 % (27.0-41.0); MEAN CELL VOLUME 103.8 fl (81.0-99.0); MEAN CORPUSCULAR HGB 32.6 pg (27.0-31.0); MEAN CORPUSCULAR HGB CONC 31.5 g/dl (33.0-37.0); MEAN PLATELET VOLUME 10.5 fl (9.6-12.3); MONO # 0.4 10*3/uL (0.1-1.0); MONO % 6.4 % (3.0-9.0); NEUT # 5.8 10*3/uL (2.3-7.9); NEUT % 84.5 % (47.0-73.0); PLATELET COUNT AUTOMATED 152 10*3/uL (130-400); RED BLOOD COUNT 2.91 10*6/uL (4.10-5.10); WHITE BLOOD COUNT 6.9 10*3/uL (4.8-10.8)
[2017-10-04 07:04] LABS: ALKALINE PHOSPHATASE 83 U/L (45-117); BUN 17 mg/dl (7-24); CHLORIDE 102 mmol/L (98-107); CREATININE 0.63 mg/dL (0.55-1.02); POTASSIUM 3.7 mmol/L (3.5-5.1); SGOT/AST 20 IU/L (3-35); SGPT/ALT 18 U/L (12-78); SODIUM 139 mmol/L (136-145); TOTAL PROTEIN 6.8 gm/dL (6.4-8.2)
[2017-10-04 07:38] LABS: INTERNATIONAL NORM RATIO 1.7 (2.0-3.5)
[2017-10-04 08:00] VITALS: BP 152/54
[2017-10-04] MEDS ORDERED: SENNA8.6 MG PO (10:13)
[2017-10-04 16:19] VITALS: BP 150/55
[2017-10-04 20:00] VITALS: BP 164/65
[2017-10-05] VITALS: BP 151/68
[2017-10-05 06:48] LABS: BASO % 0.1 % (0.0-1.0); HEMATOCRIT 33.3 % (37.0-47.0); HEMOGLOBIN 10.3 g/dl (12.0-16.0); LYMPH # 0.9 10*3/uL (1.3-4.4); LYMPH % 9.9 % (27.0-41.0); MEAN CELL VOLUME 104.1 fl (81.0-99.0); MEAN CORPUSCULAR HGB 32.2 pg (27.0-31.0); MEAN CORPUSCULAR HGB CONC 30.9 g/dl (33.0-37.0); MEAN PLATELET VOLUME 10.2 fl (9.6-12.3); MONO # 0.6 10*3/uL (0.1-1.0); MONO % 6.7 % (3.0-9.0); NEUT # 7.2 10*3/uL (2.3-7.9); NEUT % 82.3 % (47.0-73.0); PLATELET COUNT AUTOMATED 191 10*3/uL (130-400); RED CELL DISTRI WIDTH 14.6 % (0-14.5); WHITE BLOOD COUNT 8.8 10*3/uL (4.8-10.8)
[2017-10-05 07:01] LABS: INTERNATIONAL NORM RATIO 1.6 (2.0-3.5)
[2017-10-05 07:02] LABS: ALBUMIN 3.1 gm/dl (3.1-4.5); ALKALINE PHOSPHATASE 86 U/L (45-117); BUN 24 mg/dl (7-24); CHLORIDE 99 mmol/L (98-107); CREATININE 0.68 mg/dL (0.55-1.02); POTASSIUM 3.7 mmol/L (3.5-5.1); SGOT/AST 20 IU/L (3-35); SGPT/ALT 20 U/L (12-78); SODIUM 138 mmol/L (136-145); TOTAL PROTEIN 7.2 gm/dL (6.4-8.2)
[2017-10-05 08:00] VITALS: BP 154/60
[2017-10-05 12:00] VITALS: BP 136/68
[2017-10-05 16:00] VITALS: BP 156/61
[2017-10-05 20:00] VITALS: BP 160/63
[2017-10-06] VITALS: BP 148/66
[2017-10-06 05:50] LABS: HEMATOCRIT 32.2 % (37.0-47.0); LYMPH # 0.7 10*3/uL (1.3-4.4); LYMPH % 8.6 % (27.0-41.0); MEAN CELL VOLUME 103.9 fl (81.0-99.0); MEAN CORPUSCULAR HGB 32.3 pg (27.0-31.0); MEAN CORPUSCULAR HGB CONC 31.1 g/dl (33.0-37.0); MEAN PLATELET VOLUME 10.1 fl (9.6-12.3); MONO # 0.4 10*3/uL (0.1-1.0); MONO % 5.1 % (3.0-9.0); NEUT # 6.4 10*3/uL (2.3-7.9); NEUT % 85.6 % (47.0-73.0); PLATELET COUNT AUTOMATED 187 10*3/uL (130-400); RED CELL DISTRI WIDTH 14.6 % (0-14.5); WHITE BLOOD COUNT 7.5 10*3/uL (4.8-10.8)
[2017-10-06 06:12] LABS: BUN 23 mg/dl (7-24); CHLORIDE 100 mmol/L (98-107); CREATININE 0.73 mg/dL (0.55-1.02); POTASSIUM 3.5 mmol/L (3.5-5.1); SODIUM 140 mmol/L (136-145)
[2017-10-06 12:00] VITALS: BP 160/62
[2017-10-06] MEDS ORDERED: PREDNISONE10 MG PO (16:00)
[2017-10-06] MEDS ORDERED: MUCINEX ER600 MG PO (16:00)
== END 2017-10-06 16:39 | disposition other institution (70) | DRG 291 ==
LOC: ED 14:16 → EDHOLD 16:46 → 5E 16:46
PROVIDERS: Emergency Medicine; Internal Medicine; Nurse Practitioner Family; Student in an Organized Health Care Education/Training Program
PROC: 30233N1 Transfusion of Nonautologous Red Blood Cells into Peripheral Vein, Percutaneous Approach (ICD-10-PCS; principal; 2017-10-02)
DX: I13.0 Hypertensive heart and chronic kidney disease with heart failure and stage 1 through stage 4 chronic kidney disease, or unspecified chronic kidney disease (principal); E43 Unspecified severe protein-calorie malnutrition; J18.9 Pneumonia, unspecified organism; J96.11 Chronic respiratory failure with hypoxia; I27.20 Pulmonary hypertension, unspecified; I42.9 Cardiomyopathy, unspecified; I48.0 Paroxysmal atrial fibrillation; I50.43 Acute on chronic combined systolic (congestive) and diastolic (congestive) heart failure; J44.0 Chronic obstructive pulmonary disease with (acute) lower respiratory infection; J44.1 Chronic obstructive pulmonary disease with (acute) exacerbation; N39.0 Urinary tract infection, site not specified; I82.502 Chronic embolism and thrombosis of unspecified deep veins of left lower extremity; Z68.1 Body mass index [BMI] 19.9 or less, adult; D53.9 Nutritional anemia, unspecified; K21.9 Gastro-esophageal reflux disease without esophagitis; F32.9 Major depressive disorder, single episode, unspecified; G89.29 Other chronic pain; M47.9 Spondylosis, unspecified; K57.90 Diverticulosis of intestine, part unspecified, without perforation or abscess without bleeding; E78.5 Hyperlipidemia, unspecified; G25.81 Restless legs syndrome; Z96.641 Presence of right artificial hip joint; D72.810 Lymphocytopenia; R73.9 Hyperglycemia, unspecified; F41.1 Generalized anxiety disorder; N18.3 Chronic kidney disease, stage 3 (moderate); B96.89 Other specified bacterial agents as the cause of diseases classified elsewhere; T45.515A Adverse effect of anticoagulants, initial encounter; Y92.89 Other specified places as the place of occurrence of the external cause; Z95.810 Presence of automatic (implantable) cardiac defibrillator; Z99.81 Dependence on supplemental oxygen; Z95.5 Presence of coronary angioplasty implant and graft; Z90.710 Acquired absence of both cervix and uterus; Z80.9 Family history of malignant neoplasm, unspecified; Z95.1 Presence of aortocoronary bypass graft; Z95.2 Presence of prosthetic heart valve; Z82.49 Family history of ischemic heart disease and other diseases of the circulatory system; Z83.3 Family history of diabetes mellitus; Z88.8 Allergy status to other drugs, medicaments and biological substances; Z79.899 Other long term (current) drug therapy; Z79.01 Long term (current) use of anticoagulants; Z86.711 Personal history of pulmonary embolism; Z88.1 Allergy status to other antibiotic agents

== ENCOUNTER 2017-10-11 13:35 | Inpatient (IN) | payer MEDICARE, BC ==
[~2017-10-11] VITALS: Ht 157.4 cm; Wt 42.3 kg
[~2017-10-11 13:35] MED LIST changes: +BENADRYL ALLERG25 M5 PO; +LOSARTAN POTASS50 M1 PO; +TRAMADOL HCL50 MG PO
[2017-10-11 13:40] VITALS: BP 150/66
[2017-10-11 14:24] LABS: BASO % 0.1 % (0.0-1.0); EOS % 0.2 % (1.0-4.0); HEMOGLOBIN 11.3 g/dl (12.0-16.0); LYMPH # 0.5 10*3/uL (1.3-4.4); LYMPH % 4.7 % (27.0-41.0); MEAN CELL VOLUME 103.7 fl (81.0-99.0); MEAN CORPUSCULAR HGB 32.6 pg (27.0-31.0); MEAN CORPUSCULAR HGB CONC 31.4 g/dl (33.0-37.0); MEAN PLATELET VOLUME 9.5 fl (9.6-12.3); MONO # 0.6 10*3/uL (0.1-1.0); MONO % 5.7 % (3.0-9.0); NEUT # 9.2 10*3/uL (2.3-7.9); NEUT % 88.2 % (47.0-73.0); PLATELET COUNT AUTOMATED 181 10*3/uL (130-400); RED BLOOD COUNT 3.47 10*6/uL (4.10-5.10); RED CELL DISTRI WIDTH 14.6 % (0-14.5); WHITE BLOOD COUNT 10.5 10*3/uL (4.8-10.8)
[2017-10-11 14:32] LABS: ACT PARTIAL THROMBO TIME 22.9 SECONDS (20.8-31.5); INTERNATIONAL NORM RATIO 1.3 (2.0-3.5)
[2017-10-11 14:40] LABS: ALBUMIN 3.1 gm/dl (3.1-4.5); ALKALINE PHOSPHATASE 83 U/L (45-117); BUN 18 mg/dl (7-24); CHLORIDE 101 mmol/L (98-107); POTASSIUM 3.1 mmol/L (3.5-5.1); SGOT/AST 32 IU/L (3-35); SGPT/ALT 75 U/L (12-78); SODIUM 140 mmol/L (136-145)
[2017-10-11 14:43] LABS: TROPONIN I 0.061 ng/ml (<0.045)
[2017-10-11] MEDS ORDERED: GUAIFENESIN600 MG PO (15:13)
[2017-10-11 15:24] VITALS: BP 137/59
[2017-10-11 16:10] VITALS: BP 151/66
[2017-10-11 20:00] VITALS: BP 136/59
[2017-10-12] VITALS: BP 138/60
[2017-10-12 06:52] LABS: BASO % 0.1 % (0.0-1.0); HEMATOCRIT 34.1 % (37.0-47.0); HEMOGLOBIN 10.7 g/dl (12.0-16.0); LYMPH # 0.7 10*3/uL (1.3-4.4); LYMPH % 6.9 % (27.0-41.0); MEAN CELL VOLUME 101.5 fl (81.0-99.0); MEAN CORPUSCULAR HGB 31.8 pg (27.0-31.0); MEAN CORPUSCULAR HGB CONC 31.4 g/dl (33.0-37.0); MONO # 0.6 10*3/uL (0.1-1.0); MONO % 5.8 % (3.0-9.0); NEUT # 8.8 10*3/uL (2.3-7.9); NEUT % 85.8 % (47.0-73.0); PLATELET COUNT AUTOMATED 174 10*3/uL (130-400); RED BLOOD COUNT 3.36 10*6/uL (4.10-5.10); RED CELL DISTRI WIDTH 14.5 % (0-14.5); WHITE BLOOD COUNT 10.3 10*3/uL (4.8-10.8)
[2017-10-12 06:58] LABS: BUN 15 mg/dl (7-24); CHLORIDE 99 mmol/L (98-107); CREATININE 0.58 mg/dL (0.55-1.02); PHOSPHOROUS 3.2 mg/dL (2.5-4.9); POTASSIUM 3.4 mmol/L (3.5-5.1); SODIUM 138 mmol/L (136-145)
[2017-10-12 07:12] LABS: INTERNATIONAL NORM RATIO 1.5 (2.0-3.5)
[2017-10-12 08:00] VITALS: BP 182/70
[2017-10-12 11:48] VITALS: BP 137/51
[2017-10-12 16:00] VITALS: BP 155/51
[2017-10-12 20:00] VITALS: BP 150/67
[2017-10-13] VITALS: BP 176/70
[2017-10-13 06:57] LABS: BASO % 0.1 % (0.0-1.0); HEMATOCRIT 32.6 % (37.0-47.0); HEMOGLOBIN 10.3 g/dl (12.0-16.0); LYMPH # 0.7 10*3/uL (1.3-4.4); LYMPH % 9.5 % (27.0-41.0); MEAN CELL VOLUME 101.6 fl (81.0-99.0); MEAN CORPUSCULAR HGB 32.1 pg (27.0-31.0); MEAN CORPUSCULAR HGB CONC 31.6 g/dl (33.0-37.0); MEAN PLATELET VOLUME 10.4 fl (9.6-12.3); MONO # 0.5 10*3/uL (0.1-1.0); MONO % 6.9 % (3.0-9.0); NEUT # 6.4 10*3/uL (2.3-7.9); NEUT % 82.5 % (47.0-73.0); PLATELET COUNT AUTOMATED 162 10*3/uL (130-400); RED BLOOD COUNT 3.21 10*6/uL (4.10-5.10); RED CELL DISTRI WIDTH 14.5 % (0-14.5); WHITE BLOOD COUNT 7.7 10*3/uL (4.8-10.8)
[2017-10-13 07:23] LABS: INTERNATIONAL NORM RATIO 1.4 (2.0-3.5)
[2017-10-13 07:31] LABS: BUN 21 mg/dl (7-24); CHLORIDE 101 mmol/L (98-107); POTASSIUM 3.8 mmol/L (3.5-5.1); SODIUM 139 mmol/L (136-145)
[2017-10-13 07:32] LABS: CREATININE 0.59 mg/dL (0.55-1.02)
[2017-10-13 08:00] VITALS: BP 170/58
[2017-10-13 08:32] VITALS: BP 167/66
[2017-10-13 11:53] VITALS: BP 150/58
[2017-10-13] MEDS ORDERED: MONTELUKAST SOD10 MG PO (13:26)
[2017-10-13] MEDS ORDERED: TRAMADOL HCL50 MG PO (13:26)
[2017-10-13] MEDS ORDERED: ALPRAZOLAM0.5 M3 PO (13:27)
[2017-10-13] MEDS ORDERED: MUCINEX1200 M1 PO (13:27)
[2017-10-13] MEDS ORDERED: PREDNISONE50 MG PO (13:27)
[2017-10-13] MEDS ORDERED: VIBRAMYCIN100 MG PO (13:27)
== END 2017-10-13 15:20 | disposition other institution (70) | DRG 191 ==
LOC: ED 13:35 → 4E 15:03 → EDHOLD 15:03 → 4E 15:07
PROVIDERS: Emergency Medicine; Internal Medicine; Student in an Organized Health Care Education/Training Program
DX: J44.1 Chronic obstructive pulmonary disease with (acute) exacerbation (principal); E44.0 Moderate protein-calorie malnutrition; J96.11 Chronic respiratory failure with hypoxia; I27.20 Pulmonary hypertension, unspecified; I50.42 Chronic combined systolic (congestive) and diastolic (congestive) heart failure; I11.0 Hypertensive heart disease with heart failure; D53.9 Nutritional anemia, unspecified; I48.0 Paroxysmal atrial fibrillation; Z99.81 Dependence on supplemental oxygen; I42.9 Cardiomyopathy, unspecified; Z68.1 Body mass index [BMI] 19.9 or less, adult; D72.810 Lymphocytopenia; D72.9 Disorder of white blood cells, unspecified; R74.8 Abnormal levels of other serum enzymes; R79.1 Abnormal coagulation profile; E87.6 Hypokalemia; R79.89 Other specified abnormal findings of blood chemistry; K21.9 Gastro-esophageal reflux disease without esophagitis; I25.10 Atherosclerotic heart disease of native coronary artery without angina pectoris; E78.5 Hyperlipidemia, unspecified; F32.9 Major depressive disorder, single episode, unspecified; M47.9 Spondylosis, unspecified; G89.29 Other chronic pain; K57.90 Diverticulosis of intestine, part unspecified, without perforation or abscess without bleeding; F41.9 Anxiety disorder, unspecified; Z96.641 Presence of right artificial hip joint; G25.81 Restless legs syndrome; Z95.810 Presence of automatic (implantable) cardiac defibrillator; Z88.6 Allergy status to analgesic agent; Z88.1 Allergy status to other antibiotic agents; Z86.718 Personal history of other venous thrombosis and embolism; Z86.711 Personal history of pulmonary embolism; Z95.5 Presence of coronary angioplasty implant and graft; Z95.1 Presence of aortocoronary bypass graft; Z95.2 Presence of prosthetic heart valve; Z82.49 Family history of ischemic heart disease and other diseases of the circulatory system; Z83.3 Family history of diabetes mellitus; Z80.9 Family history of malignant neoplasm, unspecified; Z98.1 Arthrodesis status; Z79.899 Other long term (current) drug therapy; Z79.01 Long term (current) use of anticoagulants

== ENCOUNTER 2017-11-19 18:26 | Inpatient (IN) | payer MEDICARE, BC ==
[~2017-11-19] VITALS: Ht 157.4 cm; Wt 42.5 kg
--- NOTE | ~2017-11-19 | EKG ---
[place], [place] ELECTROCARDIOGRAM REPORT NAME: BONI BARRETT UNIT #: [id number] ROOM: [facility] DOCTOR: CARSON EDMOND MD,CRISTIANE BIRTHDATE: [birth year] DOS: 11/19/2017 Electrocardiogram done on 11/19/2017 at 20:21 p.m. Paced rhythm noted with heart rate 65 beats per minute. Ventricular pacing was noted. CRISTIANE BYRD MD CM:EKGRPT:ELECTROCARDIOGRAM REPORT 1410 Halina EDMOND MD
[2017-11-19 16:00] VITALS: BP 152/53
[~2017-11-19 18:26] MED LIST changes: +GUAIFENESIN600 MG PO; +MONTELUKAST SOD10 MG PO; +MUCINEX1200 M1 PO
[2017-11-19 18:27] VITALS: BP 146/78
[2017-11-19 20:06] LABS: BASO % 0.5 % (0.0-1.0); EOS # 0.1 10*3/uL (0.0-0.4); HEMATOCRIT 29.8 % (37.0-47.0); HEMOGLOBIN 9.2 g/dl (12.0-16.0); LYMPH # 0.9 10*3/uL (1.3-4.4); LYMPH % 15.2 % (27.0-41.0); MEAN CELL VOLUME 103.5 fl (81.0-99.0); MEAN CORPUSCULAR HGB 31.9 pg (27.0-31.0); MEAN CORPUSCULAR HGB CONC 30.9 g/dl (33.0-37.0); MEAN PLATELET VOLUME 9.4 fl (9.6-12.3); MONO # 0.6 10*3/uL (0.1-1.0); MONO % 10.1 % (3.0-9.0); NEUT # 4.4 10*3/uL (2.3-7.9); NEUT % 71.2 % (47.0-73.0); PLATELET COUNT AUTOMATED 199 10*3/uL (130-400); RED BLOOD COUNT 2.88 10*6/uL (4.10-5.10); RED CELL DISTRI WIDTH 13.9 % (0-14.5); WHITE BLOOD COUNT 6.1 10*3/uL (4.8-10.8)
[2017-11-19 20:18] LABS: INTERNATIONAL NORM RATIO 2.8 (2.0-3.5)
[2017-11-19 20:22] LABS: ALBUMIN 3.2 gm/dl (3.1-4.5); ALKALINE PHOSPHATASE 93 U/L (45-117); BUN 10 mg/dl (7-24); CHLORIDE 106 mmol/L (98-107); POTASSIUM 3.2 mmol/L (3.5-5.1); SGOT/AST 15 IU/L (3-35); SGPT/ALT 15 U/L (12-78); SODIUM 142 mmol/L (136-145); TOTAL PROTEIN 7.3 gm/dL (6.4-8.2)
[2017-11-19 20:25] LABS: TROPONIN I < 0.015 ng/ml (<0.045)
[2017-11-19 23:34] VITALS: BP 143/64
[2017-11-20 01:00] VITALS: BP 145/69
[2017-11-20 06:07] LABS: ALBUMIN 2.9 gm/dl (3.1-4.5); ALKALINE PHOSPHATASE 80 U/L (45-117); BUN 12 mg/dl (7-24); CHLORIDE 108 mmol/L (98-107); CREATININE 0.77 mg/dL (0.55-1.02); PHOSPHOROUS 3.6 mg/dL (2.5-4.9); POTASSIUM 3.9 mmol/L (3.5-5.1); SGOT/AST 16 IU/L (3-35); SGPT/ALT 16 U/L (12-78); SODIUM 144 mmol/L (136-145); TOTAL PROTEIN 6.8 gm/dL (6.4-8.2)
[2017-11-20 06:18] LABS: BASO % 0.5 % (0.0-1.0); HEMATOCRIT 28.3 % (37.0-47.0); HEMOGLOBIN 8.6 g/dl (12.0-16.0); LYMPH # 0.5 10*3/uL (1.3-4.4); LYMPH % 11.3 % (27.0-41.0); MEAN CELL VOLUME 102.5 fl (81.0-99.0); MEAN CORPUSCULAR HGB 31.2 pg (27.0-31.0); MEAN CORPUSCULAR HGB CONC 30.4 g/dl (33.0-37.0); MEAN PLATELET VOLUME 9.9 fl (9.6-12.3); MONO # 0.1 10*3/uL (0.1-1.0); MONO % 2.5 % (3.0-9.0); NEUT # 3.4 10*3/uL (2.3-7.9); NEUT % 84.5 % (47.0-73.0); PLATELET COUNT AUTOMATED 191 10*3/uL (130-400); RED BLOOD COUNT 2.76 10*6/uL (4.10-5.10); RED CELL DISTRI WIDTH 13.9 % (0-14.5); WHITE BLOOD COUNT 4.1 10*3/uL (4.8-10.8)
[2017-11-20 06:43] LABS: INTERNATIONAL NORM RATIO 2.4 (2.0-3.5)
[2017-11-20 08:00] VITALS: BP 123/61
[2017-11-20 12:00] VITALS: BP 161/85
[2017-11-20] MEDS ORDERED: ONDANSETRON HYDR4 MG PO (12:53)
[2017-11-20 16:00] VITALS: BP 139/64
[2017-11-20 20:00] VITALS: BP 140/58
[2017-11-21] VITALS: BP 151/63
[2017-11-21 06:44] LABS: BASO % 0.3 % (0.0-1.0); HEMATOCRIT 26.6 % (37.0-47.0); HEMOGLOBIN 8.3 g/dl (12.0-16.0); LYMPH # 0.5 10*3/uL (1.3-4.4); LYMPH % 7.7 % (27.0-41.0); MEAN CELL VOLUME 104.7 fl (81.0-99.0); MEAN CORPUSCULAR HGB 32.7 pg (27.0-31.0); MEAN CORPUSCULAR HGB CONC 31.2 g/dl (33.0-37.0); MEAN PLATELET VOLUME 10.2 fl (9.6-12.3); MONO # 0.4 10*3/uL (0.1-1.0); NEUT # 5.9 10*3/uL (2.3-7.9); NEUT % 84.1 % (47.0-73.0); PLATELET COUNT AUTOMATED 181 10*3/uL (130-400); RED BLOOD COUNT 2.54 10*6/uL (4.10-5.10); RED CELL DISTRI WIDTH 14.4 % (0-14.5)
[2017-11-21 06:57] LABS: BUN 12 mg/dl (7-24); CHLORIDE 111 mmol/L (98-107); CREATININE 0.69 mg/dL (0.55-1.02); POTASSIUM 4.2 mmol/L (3.5-5.1); SODIUM 147 mmol/L (136-145)
[2017-11-21 07:02] LABS: INTERNATIONAL NORM RATIO 2.3 (2.0-3.5)
[2017-11-21 08:00] VITALS: BP 160/61
[2017-11-21 12:00] VITALS: BP 160/80
[2017-11-21 16:00] VITALS: BP 152/53
[2017-11-21 20:10] VITALS: BP 162/78
[2017-11-21 22:35] VITALS: BP 158/70
[2017-11-22] VITALS: BP 162/75
[2017-11-22 00:35] VITALS: BP 140/76
[2017-11-22 06:19] LABS: BASO % 0.1 % (0.0-1.0); HEMATOCRIT 26.4 % (37.0-47.0); LYMPH # 0.6 10*3/uL (1.3-4.4); LYMPH % 7.2 % (27.0-41.0); MEAN CELL VOLUME 104.8 fl (81.0-99.0); MEAN CORPUSCULAR HGB 31.7 pg (27.0-31.0); MEAN CORPUSCULAR HGB CONC 30.3 g/dl (33.0-37.0); MEAN PLATELET VOLUME 9.4 fl (9.6-12.3); MONO # 0.5 10*3/uL (0.1-1.0); MONO % 5.8 % (3.0-9.0); NEUT # 6.8 10*3/uL (2.3-7.9); NEUT % 85.1 % (47.0-73.0); PLATELET COUNT AUTOMATED 166 10*3/uL (130-400); RED BLOOD COUNT 2.52 10*6/uL (4.10-5.10); RED CELL DISTRI WIDTH 14.6 % (0-14.5); WHITE BLOOD COUNT 7.9 10*3/uL (4.8-10.8)
[2017-11-22 06:25] LABS: INTERNATIONAL NORM RATIO 2.7 (2.0-3.5)
[2017-11-22 06:34] LABS: BUN 10 mg/dl (7-24); CHLORIDE 108 mmol/L (98-107); CREATININE 0.55 mg/dL (0.55-1.02); PHOSPHOROUS 2.7 mg/dL (2.5-4.9); POTASSIUM 4.3 mmol/L (3.5-5.1); SODIUM 144 mmol/L (136-145)
[2017-11-22 08:00] VITALS: BP 134/75
[2017-11-22 12:00] VITALS: BP 164/72
[2017-11-22 16:00] VITALS: BP 181/83
[2017-11-22 20:00] VITALS: BP 151/63
[2017-11-23] VITALS: BP 152/62
[2017-11-23 06:56] LABS: INTERNATIONAL NORM RATIO 2.9 (2.0-3.5)
[2017-11-23 08:00] VITALS: BP 140/60
[2017-11-23 08:59] LABS: BASO % 0.2 % (0.0-1.0); HEMATOCRIT 27.4 % (37.0-47.0); HEMOGLOBIN 8.5 g/dl (12.0-16.0); LYMPH # 1.1 10*3/uL (1.3-4.4); LYMPH % 13.4 % (27.0-41.0); MEAN CORPUSCULAR HGB 32.6 pg (27.0-31.0); MEAN PLATELET VOLUME 9.9 fl (9.6-12.3); MONO # 0.6 10*3/uL (0.1-1.0); MONO % 7.1 % (3.0-9.0); NEUT # 6.4 10*3/uL (2.3-7.9); NEUT % 77.1 % (47.0-73.0); NUCLEATED RED BLOOD CELL 0.2 % (0.0-0.0); PLATELET COUNT AUTOMATED 183 10*3/uL (130-400); RED BLOOD COUNT 2.61 10*6/uL (4.10-5.10); RED CELL DISTRI WIDTH 14.8 % (0-14.5); WHITE BLOOD COUNT 8.3 10*3/uL (4.8-10.8)
[2017-11-23 12:00] VITALS: BP 139/71
[2017-11-23 16:00] VITALS: BP 139/78
[2017-11-23 20:00] VITALS: BP 166/70
[2017-11-24] VITALS: BP 159/60
[2017-11-24 07:08] LABS: INTERNATIONAL NORM RATIO 2.8 (2.0-3.5)
[2017-11-24 08:00] VITALS: BP 187/72
[2017-11-24 10:02] VITALS: BP 158/74
[2017-11-24 12:00] VITALS: BP 159/77
[2017-11-24 16:00] VITALS: BP 152/68
[2017-11-24 20:00] VITALS: BP 158/55
== END 2017-11-24 21:30 | disposition short-term general hospital (02) | DRG 190 ==
LOC: ED 18:26 → EDHOLD 22:13 → 5E 22:13
PROVIDERS: Emergency Medicine Emergency Medical Services; Family Medicine; Internal Medicine; Internal Medicine Nephrology; Registered Nurse
DX: J44.1 Chronic obstructive pulmonary disease with (acute) exacerbation (principal); E43 Unspecified severe protein-calorie malnutrition; E87.0 Hyperosmolality and hypernatremia; J96.11 Chronic respiratory failure with hypoxia; I27.20 Pulmonary hypertension, unspecified; I48.0 Paroxysmal atrial fibrillation; E87.8 Other disorders of electrolyte and fluid balance, not elsewhere classified; E83.41 Hypermagnesemia; I08.2 Rheumatic disorders of both aortic and tricuspid valves; Z68.1 Body mass index [BMI] 19.9 or less, adult; I10 Essential (primary) hypertension; M47.893 Other spondylosis, cervicothoracic region; F41.9 Anxiety disorder, unspecified; I25.10 Atherosclerotic heart disease of native coronary artery without angina pectoris; F32.9 Major depressive disorder, single episode, unspecified; K21.9 Gastro-esophageal reflux disease without esophagitis; D72.810 Lymphocytopenia; E87.6 Hypokalemia; G89.29 Other chronic pain; D53.9 Nutritional anemia, unspecified; E78.2 Mixed hyperlipidemia; M81.0 Age-related osteoporosis without current pathological fracture; K57.90 Diverticulosis of intestine, part unspecified, without perforation or abscess without bleeding; G25.81 Restless legs syndrome; Z96.641 Presence of right artificial hip joint; Z95.5 Presence of coronary angioplasty implant and graft; Z90.710 Acquired absence of both cervix and uterus; Z95.1 Presence of aortocoronary bypass graft; Z95.2 Presence of prosthetic heart valve; Z99.81 Dependence on supplemental oxygen; Z86.718 Personal history of other venous thrombosis and embolism; Z86.711 Personal history of pulmonary embolism; Z82.49 Family history of ischemic heart disease and other diseases of the circulatory system; Z83.3 Family history of diabetes mellitus; Z80.9 Family history of malignant neoplasm, unspecified; Z88.8 Allergy status to other drugs, medicaments and biological substances; Z79.899 Other long term (current) drug therapy

== ENCOUNTER 2018-01-09 01:14 | Emergency (ER) | payer MEDICARE, BC ==
[~2018-01-09] VITALS: Wt 40.8 kg
[~2018-01-09 01:14] MED LIST changes: +ONDANSETRON HYDR4 MG PO
[2018-01-09 01:37] LABS: BILIRUBIN NEGATIVE (NEGATIVE); BLOOD NEGATIVE (NEGATIVE); CLARITY CLEAR (CLEAR); COLOR YELLOW (YELLOW); GLUCOSE NEGATIVE (NEGATIVE); KETONE TRACE (NEGATIVE); LEUKO ESTERASE TRACE (NEGATIVE); NITRITE NEGATIVE (NEGATIVE); SPECIFIC GRAVITY 1.015 (1.005-1.030); UROBILINOGEN 0.2 E.U./dl (0.2-1.0)
[2018-01-09 01:46] LABS: BASO % 0.1 % (0.0-1.0); EOS % 0.2 % (1.0-4.0); HEMOGLOBIN 9.6 g/dl (12.0-16.0); LYMPH # 1.2 10*3/uL (1.3-4.4); LYMPH % 12.8 % (27.0-41.0); MEAN CELL VOLUME 105.4 fl (81.0-99.0); MEAN CORPUSCULAR HGB 32.7 pg (27.0-31.0); MEAN PLATELET VOLUME 9.4 fl (9.6-12.3); MONO % 10.2 % (3.0-9.0); NEUT # 7.2 10*3/uL (2.3-7.9); NEUT % 76.1 % (47.0-73.0); PLATELET COUNT AUTOMATED 169 10*3/uL (130-400); RED BLOOD COUNT 2.94 10*6/uL (4.10-5.10); RED CELL DISTRI WIDTH 14.6 % (0-14.5); WHITE BLOOD COUNT 9.4 10*3/uL (4.8-10.8)
[2018-01-09 01:48] LABS: URINE AMPHETAMINES < 1000 (1000ng/ml); URINE BARBITURATES < 200 (200ng/ml); URINE BENZODIAZEPINES > 200 (200ng/ml); URINE CANNABINOIDS (THC) < 50 (50ng/ml); URINE COCAINE < 300 (300ng/ml); URINE METHADONE < 300 (300ng/ml); URINE OPIATES < 300 (300ng/ml)
[2018-01-09 01:50] LABS: HYALINE CAST 15-20
[2018-01-09 01:51] LABS: URINE PHENCYCLIDINE < 25 (25ng/ml)
[2018-01-09 01:56] LABS: ACT PARTIAL THROMBO TIME 25.1 SECONDS (20.8-31.5); INTERNATIONAL NORM RATIO 1.8 (2.0-3.5)
[2018-01-09 02:03] LABS: ALBUMIN 3.8 gm/dl (3.1-4.5); ALKALINE PHOSPHATASE 63 U/L (45-117); BUN 28 mg/dl (7-24); CHLORIDE 105 mmol/L (98-107); CREATININE 1.05 mg/dL (0.55-1.02); POTASSIUM 4.2 mmol/L (3.5-5.1); SGOT/AST 19 IU/L (3-35); SGPT/ALT 19 U/L (12-78); SODIUM 145 mmol/L (136-145); TOTAL PROTEIN 7.5 gm/dL (6.4-8.2)
[2018-01-09 02:04] LABS: ACETAMINOPHEN (TYLENOL) < 2.0 ug/ml (10-30); ETHYL ALCOHOL < 3.0 mg/dl (<3); TROPONIN I < 0.015 ng/ml (<0.045)
[2018-01-09 03:47] VITALS: BP 156/86
== END 2018-01-09 04:46 | disposition home or self-care (01) ==
LOC: ED 01:14
PROVIDERS: Student in an Organized Health Care Education/Training Program
DX: Z63.9 Problem related to primary support group, unspecified (principal); F41.9 Anxiety disorder, unspecified; F32.9 Major depressive disorder, single episode, unspecified; I11.0 Hypertensive heart disease with heart failure; I50.40 Unspecified combined systolic (congestive) and diastolic (congestive) heart failure; I25.10 Atherosclerotic heart disease of native coronary artery without angina pectoris; I48.91 Unspecified atrial fibrillation; J44.9 Chronic obstructive pulmonary disease, unspecified; K21.9 Gastro-esophageal reflux disease without esophagitis; M47.9 Spondylosis, unspecified; E78.5 Hyperlipidemia, unspecified; Z86.718 Personal history of other venous thrombosis and embolism; Z88.6 Allergy status to analgesic agent; Z88.1 Allergy status to other antibiotic agents; Z79.899 Other long term (current) drug therapy; Z79.02 Long term (current) use of antithrombotics/antiplatelets

== ENCOUNTER 2018-03-21 10:03 | Inpatient (IN) | payer MEDICARE, BC ==
[~2018-03-21] VITALS: Ht 157.4 cm; Wt 45.4 kg
--- NOTE | ~2018-03-21 | EKG ---
[place], [place] ELECTROCARDIOGRAM REPORT NAME: BONI BARRETT UNIT #: [id number] ROOM: [facility] DOCTOR: CONCEPCION DRAFT REPORT BIRTHDATE: [birth year] [facility] Test Date: 2018-03-21 Test Time: 11:48:10 Pat Name: BONI BARRETT Department: Room: [facility] Gender: F Quarrying Specialist: Thalia Connolly : 1940 Requested By: ROGELIO PETERSON Order Number: [id number] Reading MD: Jesus Manuel Garcia MD Measurements Intervals [place] Rate: 69 P: 0 [place]: 73 QRS: 217 QRSD: 116 T: 149 QT: 394 QTc: 422 Interpretive Statements Ventricular-paced rhythm No further analysis attempted due to paced rhythm Electronically Signed On 03-21-2018 9:37:03 PDT by Jesus Manuel Garcia MD CM:EKGRPT:ELECTROCARDIOGRAM REPORT [id number] ROGELIO JAVIER DRAFT REPORT ROGELIO PETERSON M.D.
[2018-03-21 10:05] VITALS: BP 137/102
[2018-03-21 10:29] LABS: HEMATOCRIT 32.1 % (37.0-47.0); HEMOGLOBIN 9.4 g/dl (12.0-16.0); MEAN CELL VOLUME 108.4 fl (81.0-99.0); MEAN CORPUSCULAR HGB 31.8 pg (27.0-31.0); MEAN CORPUSCULAR HGB CONC 29.3 g/dl (33.0-37.0); MEAN PLATELET VOLUME 9.9 fl (9.6-12.3); PLATELET COUNT AUTOMATED 174 10*3/uL (130-400); RED BLOOD COUNT 2.96 10*6/uL (4.10-5.10); RED CELL DISTRI WIDTH 14.2 % (0-14.5); WHITE BLOOD COUNT 8.2 10*3/uL (4.8-10.8)
[2018-03-21 10:37] LABS: INTERNATIONAL NORM RATIO 3.3 (2.0-3.5)
[2018-03-21 10:47] LABS: ALBUMIN 3.3 gm/dl (3.1-4.5); ALKALINE PHOSPHATASE 61 U/L (45-117); BUN 13 mg/dl (7-24); CHLORIDE 109 mmol/L (98-107); CREATININE 0.82 mg/dL (0.55-1.02); POTASSIUM 3.5 mmol/L (3.5-5.1); SGOT/AST 24 IU/L (3-35); SGPT/ALT 37 U/L (12-78); SODIUM 145 mmol/L (136-145); TOTAL PROTEIN 7.3 gm/dL (6.4-8.2)
[2018-03-21 10:48] LABS: OVALOCYTES FEW; PLATELET SUFFICIENCY NORMAL (NORMAL); TOTAL CELLS COUNTED 100 #CELLS
[2018-03-21 11:30] VITALS: BP 133/88
[2018-03-21 12:26] VITALS: BP 154/69
[2018-03-21 13:12] VITALS: BP 150/49
[2018-03-21] MEDS ORDERED: Zofran4 MG SL (15:29)
[2018-03-21] MEDS ORDERED: PREDNISONE20 M1 PO (15:30)
[2018-03-21] MEDS ORDERED: PREDNISONE5 MG PO (15:30)
[2018-03-21 16:00] VITALS: BP 127/57
[2018-03-21 20:00] VITALS: BP 134/59
[2018-03-22] VITALS: BP 142/58
[2018-03-22 06:01] LABS: BASO % 0.1 % (0.0-1.0); HEMATOCRIT 28.3 % (37.0-47.0); HEMOGLOBIN 8.7 g/dl (12.0-16.0); LYMPH # 0.7 10*3/uL (1.3-4.4); LYMPH % 6.7 % (27.0-41.0); MEAN CORPUSCULAR HGB 32.6 pg (27.0-31.0); MEAN CORPUSCULAR HGB CONC 30.7 g/dl (33.0-37.0); MEAN PLATELET VOLUME 10.1 fl (9.6-12.3); MONO # 0.5 10*3/uL (0.1-1.0); MONO % 5.4 % (3.0-9.0); NEUT # 8.6 10*3/uL (2.3-7.9); NEUT % 86.8 % (47.0-73.0); PLATELET COUNT AUTOMATED 176 10*3/uL (130-400); RED BLOOD COUNT 2.67 10*6/uL (4.10-5.10); RED CELL DISTRI WIDTH 14.1 % (0-14.5)
[2018-03-22 06:19] LABS: CHLORIDE 107 mmol/L (98-107); CHOLESTEROL 171 mg/dL (<200); CREATININE 0.88 mg/dL (0.55-1.02); FREE T4 0.63 ng/dl (0.76-1.46); PHOSPHOROUS 3.6 mg/dL (2.5-4.9); SGOT/AST 18 IU/L (3-35); SGPT/ALT 31 U/L (12-78); SODIUM 142 mmol/L (136-145); TOTAL PROTEIN 6.8 gm/dL (6.4-8.2); TRIGLYCERIDES 63 mg/dl (<150); VLDL CHOLESTEROL 13 mg/dL (6-40)
[2018-03-22 06:23] LABS: INTERNATIONAL NORM RATIO 4.5 (2.0-3.5)
[2018-03-22 06:24] LABS: ALKALINE PHOSPHATASE 55 U/L (45-117); BUN 16 mg/dl (7-24); HDL CHOLESTEROL 97 mg/dl (40-60); LDL CHOLESTEROL 61 mg/dL (9-159)
[2018-03-22 08:00] VITALS: BP 124/74
[2018-03-22 08:06] LABS: VITAMIN D, 25-HYDROXY 21.9 ng/mL (30-100)
[2018-03-22 12:00] VITALS: BP 156/61
[2018-03-22 16:00] VITALS: BP 119/63
[2018-03-22 20:00] VITALS: BP 163/55
[2018-03-23] VITALS: BP 164/58
[2018-03-23 07:11] LABS: BASO % 0.3 % (0.0-1.0); EOS # 0.1 10*3/uL (0.0-0.4); EOS % 0.8 % (1.0-4.0); HEMATOCRIT 28.2 % (37.0-47.0); HEMOGLOBIN 8.6 g/dl (12.0-16.0); LYMPH # 1.2 10*3/uL (1.3-4.4); LYMPH % 13.4 % (27.0-41.0); MEAN CELL VOLUME 107.6 fl (81.0-99.0); MEAN CORPUSCULAR HGB 32.8 pg (27.0-31.0); MEAN CORPUSCULAR HGB CONC 30.5 g/dl (33.0-37.0); MEAN PLATELET VOLUME 9.8 fl (9.6-12.3); MONO # 0.8 10*3/uL (0.1-1.0); MONO % 8.5 % (3.0-9.0); NEUT # 6.9 10*3/uL (2.3-7.9); PLATELET COUNT AUTOMATED 182 10*3/uL (130-400); RED BLOOD COUNT 2.62 10*6/uL (4.10-5.10); RED CELL DISTRI WIDTH 14.3 % (0-14.5); WHITE BLOOD COUNT 9.1 10*3/uL (4.8-10.8)
[2018-03-23 07:43] LABS: BUN 18 mg/dl (7-24); CHLORIDE 108 mmol/L (98-107); CREATININE 0.72 mg/dL (0.55-1.02); POTASSIUM 3.8 mmol/L (3.5-5.1); SGOT/AST 19 IU/L (3-35); SGPT/ALT 32 U/L (12-78); SODIUM 145 mmol/L (136-145); TOTAL PROTEIN 6.5 gm/dL (6.4-8.2)
[2018-03-23 07:44] LABS: ALKALINE PHOSPHATASE 52 U/L (45-117)
[2018-03-23 07:48] LABS: INTERNATIONAL NORM RATIO 2.8 (2.0-3.5)
[2018-03-23] MEDS ORDERED: ZITHROMAX500 MG PO (10:14)
[2018-03-23] MEDS ORDERED: PREDNISONE20 M1 PO (10:14)
== END 2018-03-23 11:09 | disposition home or self-care (01) | DRG 191 ==
LOC: ED 10:03 → 4E 11:58 → EDHOLD 11:58 → 4E 12:36
PROVIDERS: Emergency Medicine; Registered Nurse
DX: J44.1 Chronic obstructive pulmonary disease with (acute) exacerbation (principal); E44.0 Moderate protein-calorie malnutrition; D68.59 Other primary thrombophilia; J96.10 Chronic respiratory failure, unspecified whether with hypoxia or hypercapnia; I50.40 Unspecified combined systolic (congestive) and diastolic (congestive) heart failure; R26.2 Difficulty in walking, not elsewhere classified; I48.91 Unspecified atrial fibrillation; K21.9 Gastro-esophageal reflux disease without esophagitis; I25.10 Atherosclerotic heart disease of native coronary artery without angina pectoris; E78.5 Hyperlipidemia, unspecified; F32.9 Major depressive disorder, single episode, unspecified; M47.9 Spondylosis, unspecified; G25.81 Restless legs syndrome; F41.9 Anxiety disorder, unspecified; G89.29 Other chronic pain; K57.90 Diverticulosis of intestine, part unspecified, without perforation or abscess without bleeding; I11.0 Hypertensive heart disease with heart failure; Z96.641 Presence of right artificial hip joint; D53.9 Nutritional anemia, unspecified; Z88.8 Allergy status to other drugs, medicaments and biological substances; Z79.899 Other long term (current) drug therapy; Z79.01 Long term (current) use of anticoagulants; Z86.718 Personal history of other venous thrombosis and embolism; Z99.81 Dependence on supplemental oxygen; Z86.711 Personal history of pulmonary embolism; Z95.5 Presence of coronary angioplasty implant and graft; Z90.710 Acquired absence of both cervix and uterus; Z95.0 Presence of cardiac pacemaker; Z98.1 Arthrodesis status; Z95.1 Presence of aortocoronary bypass graft; Z95.2 Presence of prosthetic heart valve; Z82.49 Family history of ischemic heart disease and other diseases of the circulatory system; Z83.3 Family history of diabetes mellitus; Z80.8 Family history of malignant neoplasm of other organs or systems; Z68.21 Body mass index [BMI] 21.0-21.9, adult

== ENCOUNTER 2018-03-23 20:41 | Inpatient (IN) | payer MEDICARE, BC ==
[~2018-03-23] VITALS: Ht 154.9 cm; Wt 50.5 kg
--- NOTE | ~2018-03-23 | EKG ---
[place], [place] ELECTROCARDIOGRAM REPORT NAME: BONI BARRETT UNIT #: [id number] ROOM: 412 DOCTOR: CONCEPCION DRAFT REPORT BIRTHDATE: [birth year] [facility] Test Date: 2018-03-23 Test Time: 21:05:01 Pat Name: BONI BARRETT Department: Room: 412 Gender: F Transportation Assistant: TUAN RESP : 1940 Requested By: JESU ALCARAZ Order Number: [id number] Reading MD: Seng Anderson MD Measurements Intervals [place] Rate: 69 P: 0 [place]: 113 QRS: 215 QRSD: 113 T: 185 QT: 369 QTc: 396 Interpretive Statements Ventricular-paced rhythm No further analysis attempted due to paced rhythm Compared to ECG 03/21/2018 11:48:10 No significant changes Electronically Signed On 03-24-2018 11:07:32 PDT by Seng Anderson MD CM:EKGRPT:ELECTROCARDIOGRAM REPORT [id number] JESU GOSS DRAFT REPORT JESU ALCARAZ DO
[~2018-03-23 20:41] MED LIST changes: +ZITHROMAX500 MG PO; +Zofran4 MG SL
[2018-03-23 20:43] VITALS: BP 161/73
[2018-03-23 21:13] LABS: HEMATOCRIT 31.6 % (37.0-47.0); HEMOGLOBIN 9.6 g/dl (12.0-16.0); MEAN CELL VOLUME 108.6 fl (81.0-99.0); MEAN CORPUSCULAR HGB CONC 30.4 g/dl (33.0-37.0); MEAN PLATELET VOLUME 9.9 fl (9.6-12.3); PLATELET COUNT AUTOMATED 217 10*3/uL (130-400); RED BLOOD COUNT 2.91 10*6/uL (4.10-5.10); RED CELL DISTRI WIDTH 14.4 % (0-14.5)
[2018-03-23 21:25] LABS: ACT PARTIAL THROMBO TIME 27.6 SECONDS (20.8-31.5); INTERNATIONAL NORM RATIO 1.6 (2.0-3.5)
[2018-03-23 21:31] LABS: ALBUMIN 3.2 gm/dl (3.1-4.5); ALKALINE PHOSPHATASE 62 U/L (45-117); BUN 19 mg/dl (7-24); CHLORIDE 110 mmol/L (98-107); CREATININE 0.89 mg/dL (0.55-1.02); POTASSIUM 4.4 mmol/L (3.5-5.1); SGOT/AST 25 IU/L (3-35); SGPT/ALT 35 U/L (12-78); SODIUM 145 mmol/L (136-145); TOTAL PROTEIN 7.3 gm/dL (6.4-8.2)
[2018-03-23 21:33] LABS: TOTAL CELLS COUNTED 100 #CELLS
[2018-03-23 21:34] LABS: PLATELET SUFFICIENCY NORMAL (NORMAL); TROPONIN I < 0.015 ng/ml (<0.045)
[2018-03-23 23:24] VITALS: BP 150/49
[2018-03-24 00:39] VITALS: BP 142/60
[2018-03-24 00:42] LABS: BILIRUBIN NEGATIVE (NEGATIVE); BLOOD TRACE-INTACT (NEGATIVE); CLARITY CLEAR (CLEAR); COLOR YELLOW (YELLOW); GLUCOSE NEGATIVE (NEGATIVE); KETONE NEGATIVE (NEGATIVE); LEUKO ESTERASE NEGATIVE (NEGATIVE); NITRITE NEGATIVE (NEGATIVE); SPECIFIC GRAVITY <= 1.005 (1.005-1.030); UROBILINOGEN 0.2 E.U./dl (0.2-1.0)
[2018-03-24 01:01] VITALS: BP 168/58
[2018-03-24 01:04] LABS: BACTERIA TRACE; EPITHELIAL CELLS 0-5; WBC 0-2 wbc/hpf (0-5)
[2018-03-24 06:13] LABS: HEMATOCRIT 28.3 % (37.0-47.0); HEMOGLOBIN 8.4 g/dl (12.0-16.0); MEAN CORPUSCULAR HGB 32.1 pg (27.0-31.0); MEAN CORPUSCULAR HGB CONC 29.7 g/dl (33.0-37.0); MEAN PLATELET VOLUME 9.9 fl (9.6-12.3); PLATELET COUNT AUTOMATED 172 10*3/uL (130-400); RED BLOOD COUNT 2.62 10*6/uL (4.10-5.10); RED CELL DISTRI WIDTH 14.1 % (0-14.5); WHITE BLOOD COUNT 8.4 10*3/uL (4.8-10.8)
[2018-03-24 06:38] LABS: ALBUMIN 2.9 gm/dl (3.1-4.5); BUN 19 mg/dl (7-24); CHLORIDE 108 mmol/L (98-107); CREATININE 0.93 mg/dL (0.55-1.02); PHOSPHOROUS 2.9 mg/dL (2.5-4.9); POTASSIUM 4.3 mmol/L (3.5-5.1); SGOT/AST 28 IU/L (3-35); SGPT/ALT 37 U/L (12-78); SODIUM 142 mmol/L (136-145); TOTAL PROTEIN 6.2 gm/dL (6.4-8.2)
[2018-03-24 06:39] LABS: ALKALINE PHOSPHATASE 66 U/L (45-117)
[2018-03-24 06:46] LABS: ACT PARTIAL THROMBO TIME 26.4 SECONDS (20.8-31.5); INTERNATIONAL NORM RATIO 1.3 (2.0-3.5)
[2018-03-24 07:10] LABS: PLATELET SUFFICIENCY NORMAL (NORMAL); TOTAL CELLS COUNTED 100 #CELLS
[2018-03-24 08:00] VITALS: BP 152/56
[2018-03-24 12:00] VITALS: BP 138/70
[2018-03-24 16:00] VITALS: BP 132/56
[2018-03-24 20:00] VITALS: BP 150/58
[2018-03-25 00:43] VITALS: BP 136/89
[2018-03-25 05:54] LABS: BUN 15 mg/dl (7-24); CHLORIDE 110 mmol/L (98-107); CREATININE 0.75 mg/dL (0.55-1.02); POTASSIUM 4.7 mmol/L (3.5-5.1); SODIUM 145 mmol/L (136-145)
[2018-03-25 06:02] LABS: HEMATOCRIT 28.9 % (37.0-47.0); HEMOGLOBIN 8.6 g/dl (12.0-16.0); MEAN CELL VOLUME 109.1 fl (81.0-99.0); MEAN CORPUSCULAR HGB 32.5 pg (27.0-31.0); MEAN CORPUSCULAR HGB CONC 29.8 g/dl (33.0-37.0); PLATELET COUNT AUTOMATED 189 10*3/uL (130-400); RED BLOOD COUNT 2.65 10*6/uL (4.10-5.10); RED CELL DISTRI WIDTH 14.2 % (0-14.5); WHITE BLOOD COUNT 14.5 10*3/uL (4.8-10.8)
[2018-03-25 06:06] LABS: INTERNATIONAL NORM RATIO 1.1 (2.0-3.5)
[2018-03-25 07:21] LABS: PLATELET SUFFICIENCY NORMAL (NORMAL); TOTAL CELLS COUNTED 100 #CELLS
[2018-03-25 08:00] VITALS: BP 167/61
[2018-03-25 08:58] LABS: ABG BASE EXCESS 1.2 mmol/L (-2.0-2.0); ABG O2 SATURATION 94.2 % (95-97); ARTERIAL BLOOD GAS PCO2 50.9 mmHg (35-45); ARTERIAL BLOOD GAS PH 7.34 (7.35-7.45); ARTERIAL BLOOD GAS PO2 72.2 mmHg (80-90)
[2018-03-25 12:00] VITALS: BP 135/53
[2018-03-25 16:00] VITALS: BP 124/49
== END 2018-03-25 16:54 | disposition short-term general hospital (02) | DRG 871 ==
LOC: ED 20:41 → EDHOLD 03-24 00:20 → 4E 03-24 00:20 → EDBEDREQSVC 03-24 00:38 → 4E 03-24 00:40 → ICCU 03-25 09:12
PROVIDERS: Family Medicine; Internal Medicine; Student in an Organized Health Care Education/Training Program
PROC: 5A09357 Assistance with Respiratory Ventilation, Less than 24 Consecutive Hours, Continuous Positive Airway Pressure (ICD-10-PCS; principal; 2018-03-24)
DX: A41.9 Sepsis, unspecified organism (principal); J18.9 Pneumonia, unspecified organism; J96.21 Acute and chronic respiratory failure with hypoxia; J96.22 Acute and chronic respiratory failure with hypercapnia; J44.1 Chronic obstructive pulmonary disease with (acute) exacerbation; I50.42 Chronic combined systolic (congestive) and diastolic (congestive) heart failure; E44.0 Moderate protein-calorie malnutrition; D68.59 Other primary thrombophilia; J44.0 Chronic obstructive pulmonary disease with (acute) lower respiratory infection; R65.20 Severe sepsis without septic shock; G89.29 Other chronic pain; D53.9 Nutritional anemia, unspecified; E87.8 Other disorders of electrolyte and fluid balance, not elsewhere classified; R73.9 Hyperglycemia, unspecified; I48.2 Chronic atrial fibrillation; K21.9 Gastro-esophageal reflux disease without esophagitis; I25.10 Atherosclerotic heart disease of native coronary artery without angina pectoris; I11.0 Hypertensive heart disease with heart failure; E78.5 Hyperlipidemia, unspecified; F32.9 Major depressive disorder, single episode, unspecified; K57.90 Diverticulosis of intestine, part unspecified, without perforation or abscess without bleeding; M85.80 Other specified disorders of bone density and structure, unspecified site; Z96.641 Presence of right artificial hip joint; Y95 Nosocomial condition; M47.9 Spondylosis, unspecified; F41.9 Anxiety disorder, unspecified; G25.81 Restless legs syndrome; Z99.81 Dependence on supplemental oxygen; Z88.8 Allergy status to other drugs, medicaments and biological substances; Z79.899 Other long term (current) drug therapy; Z86.718 Personal history of other venous thrombosis and embolism; Z86.711 Personal history of pulmonary embolism; Z95.5 Presence of coronary angioplasty implant and graft; Z90.710 Acquired absence of both cervix and uterus; Z95.0 Presence of cardiac pacemaker; Z98.1 Arthrodesis status; Z95.2 Presence of prosthetic heart valve; Z95.1 Presence of aortocoronary bypass graft; Z82.49 Family history of ischemic heart disease and other diseases of the circulatory system; Z83.3 Family history of diabetes mellitus; Z80.8 Family history of malignant neoplasm of other organs or systems; Z68.21 Body mass index [BMI] 21.0-21.9, adult

== ENCOUNTER 2018-05-25 11:15 | Inpatient (IN) | payer MEDICARE, BC ==
[~2018-05-25] VITALS: Ht 157.5 cm; Wt 48.3 kg
[2018-05-25 11:15] VITALS: BP 101/58
[2018-05-25 13:50] VITALS: BP 149/47
[2018-05-25 15:00] VITALS: BP 152/58
[2018-05-25] MEDS ORDERED: Coumadin5 MG PO (15:35)
[2018-05-25] MEDS ORDERED: COREG3.125 MG PO (15:36)
[2018-05-25] MEDS ORDERED: DELTASONE20 M1 PO (15:36)
[2018-05-25] MEDS ORDERED: DIGOXIN125 MCG PO (15:36)
[2018-05-25] MEDS ORDERED: LASIX20 MG PO (15:36)
[2018-05-25] MEDS ORDERED: ATIVAN0.5 MG PO (15:37)
[2018-05-25] MEDS ORDERED: ZOLOFT100 MG PO (15:37)
[2018-05-25] MEDS ORDERED: MORPHINE S20 MG/5 ML PO (15:38)
[2018-05-25] MEDS ORDERED: SENNA8.6 MG PO (15:39)
[2018-05-25] MEDS ORDERED: COLACE100 MG PO (15:40)
[2018-05-25] MEDS ORDERED: OXYGEN NAS (15:40)
[2018-05-25] MEDS ORDERED: ACCUNEB 0.1.25 MG/1 INH (15:41)
[2018-05-25 15:54] VITALS: BP 134/52
[2018-05-25 20:00] VITALS: BP 154/58
[2018-05-25] MEDS ORDERED: BENADRYL ALLERG25 M5 PO (21:32)
[2018-05-25] MEDS ORDERED: Percocet 325 MG1 TAB PO (21:35)
[2018-05-26] VITALS: BP 139/53
[2018-05-26 06:26] LABS: BASO % 0.1 % (0.0-1.0); EOS % 0.2 % (1.0-4.0); HEMATOCRIT 28.5 % (37.0-47.0); HEMOGLOBIN 8.5 g/dl (12.0-16.0); LYMPH % 10.1 % (27.0-41.0); MEAN CELL VOLUME 103.3 fl (81.0-99.0); MEAN CORPUSCULAR HGB 30.8 pg (27.0-31.0); MEAN CORPUSCULAR HGB CONC 29.8 g/dl (33.0-37.0); MEAN PLATELET VOLUME 10.5 fl (9.6-12.3); MONO # 0.8 10*3/uL (0.1-1.0); MONO % 8.3 % (3.0-9.0); NEUT % 79.9 % (47.0-73.0); PLATELET COUNT AUTOMATED 149 10*3/uL (130-400); RED BLOOD COUNT 2.76 10*6/uL (4.10-5.10); RED CELL DISTRI WIDTH 14.5 % (0-14.5)
[2018-05-26 06:53] LABS: CREATININE 0.88 mg/dL (0.55-1.02)
[2018-05-26 07:04] LABS: INTERNATIONAL NORM RATIO 2.1 (2.0-3.5)
[2018-05-26 08:00] VITALS: BP 151/54
[2018-05-26 12:00] VITALS: BP 137/47
[2018-05-26 16:00] VITALS: BP 118/79
[2018-05-26 20:00] VITALS: BP 149/83
[2018-05-27] VITALS: BP 145/50
[2018-05-27 08:00] VITALS: BP 146/64
[2018-05-27 12:00] VITALS: BP 132/57
[2018-05-27 16:00] VITALS: BP 129/52
[2018-05-27 20:00] VITALS: BP 147/61
[2018-05-28] VITALS (7 sets, daily range): BP systolic 136–184; BP diastolic 53–67
[2018-05-29] VITALS: BP 143/68
[2018-05-29 07:05] LABS: INTERNATIONAL NORM RATIO 6.5 (2.0-3.5)
[2018-05-29 12:00] VITALS: BP 157/71
[2018-05-29 16:00] VITALS: BP 154/67
[2018-05-29 20:00] VITALS: BP 149/59
[2018-05-30] VITALS: BP 172/67
[2018-05-30 06:46] LABS: BASO % 0.4 % (0.0-1.0); EOS # 0.1 10*3/uL (0.0-0.4); EOS % 0.9 % (1.0-4.0); HEMATOCRIT 29.5 % (37.0-47.0); HEMOGLOBIN 8.7 g/dl (12.0-16.0); LYMPH # 1.2 10*3/uL (1.3-4.4); LYMPH % 12.5 % (27.0-41.0); MEAN CELL VOLUME 103.5 fl (81.0-99.0); MEAN CORPUSCULAR HGB 30.5 pg (27.0-31.0); MEAN CORPUSCULAR HGB CONC 29.5 g/dl (33.0-37.0); MEAN PLATELET VOLUME 10.1 fl (9.6-12.3); MONO # 0.6 10*3/uL (0.1-1.0); MONO % 6.4 % (3.0-9.0); NEUT # 7.3 10*3/uL (2.3-7.9); NEUT % 77.4 % (47.0-73.0); PLATELET COUNT AUTOMATED 209 10*3/uL (130-400); RED BLOOD COUNT 2.85 10*6/uL (4.10-5.10); RED CELL DISTRI WIDTH 14.2 % (0-14.5); WHITE BLOOD COUNT 9.5 10*3/uL (4.8-10.8)
[2018-05-30 07:04] LABS: BUN 23 mg/dl (7-24); CHLORIDE 104 mmol/L (98-107); CREATININE 0.89 mg/dL (0.55-1.02); POTASSIUM 3.7 mmol/L (3.5-5.1); SODIUM 142 mmol/L (136-145)
[2018-05-30 07:06] LABS: INTERNATIONAL NORM RATIO 5.2 (2.0-3.5)
[2018-05-30 08:00] VITALS: BP 155/60
[2018-05-30 08:15] VITALS: BP 162/74
[2018-05-30 11:49] VITALS: BP 146/64
[2018-05-30 16:00] VITALS: BP 149/65
[2018-05-30 20:00] VITALS: BP 165/60
[2018-05-31] VITALS: BP 150/52
[2018-05-31 06:54] LABS: INTERNATIONAL NORM RATIO 2.8 (2.0-3.5)
[2018-05-31 08:00] VITALS: BP 143/64
[2018-05-31 12:00] VITALS: BP 129/55
[2018-05-31 16:00] VITALS: BP 140/62
[2018-05-31 20:00] VITALS: BP 137/68
[2018-06-01] VITALS: BP 140/69
[2018-06-01 06:58] LABS: INTERNATIONAL NORM RATIO 1.9 (2.0-3.5)
[2018-06-01 08:30] VITALS: BP 152/70
[2018-06-01] MEDS ORDERED: LORAZEPAM1 MG PO (10:24)
[2018-06-01] MEDS ORDERED: METHOCARBAMOL750 M1 PO (10:26)
[2018-06-01] MEDS ORDERED: COUMADIN4 M2 PO (10:26)
[2018-06-01] MEDS ORDERED: ROXICODONE5 MG PO (10:30)
[2018-06-01] MEDS ORDERED: ATIVAN0.5 MG PO (10:32)
[2018-06-01] MEDS ORDERED: OXYCONTIN10 M1 PO (10:35)
[2018-06-01] MEDS ORDERED: Duragesic 50 M50 MCG T (10:36)
== END 2018-06-01 11:43 | disposition hospice, home (50) | DRG 552 ==
LOC: ED 11:15 → 4E 14:16 → EDHOLD 14:16 → 4E 14:23
PROVIDERS: Internal Medicine; Registered Nurse
DX: M47.9 Spondylosis, unspecified (principal); J96.11 Chronic respiratory failure with hypoxia; E44.0 Moderate protein-calorie malnutrition; D68.59 Other primary thrombophilia; I50.42 Chronic combined systolic (congestive) and diastolic (congestive) heart failure; Z68.1 Body mass index [BMI] 19.9 or less, adult; M19.90 Unspecified osteoarthritis, unspecified site; M85.80 Other specified disorders of bone density and structure, unspecified site; D53.9 Nutritional anemia, unspecified; G89.29 Other chronic pain; I48.2 Chronic atrial fibrillation; K21.9 Gastro-esophageal reflux disease without esophagitis; I25.10 Atherosclerotic heart disease of native coronary artery without angina pectoris; E78.5 Hyperlipidemia, unspecified; F32.9 Major depressive disorder, single episode, unspecified; Z96.641 Presence of right artificial hip joint; Z66 Do not resuscitate; J44.9 Chronic obstructive pulmonary disease, unspecified; D72.810 Lymphocytopenia; R00.1 Bradycardia, unspecified; Z51.5 Encounter for palliative care; F41.1 Generalized anxiety disorder; G25.81 Restless legs syndrome; K57.30 Diverticulosis of large intestine without perforation or abscess without bleeding; I11.0 Hypertensive heart disease with heart failure; Z87.81 Personal history of (healed) traumatic fracture; Z86.718 Personal history of other venous thrombosis and embolism; Z95.5 Presence of coronary angioplasty implant and graft; Z95.0 Presence of cardiac pacemaker; Z95.2 Presence of prosthetic heart valve; Z95.1 Presence of aortocoronary bypass graft; Z98.1 Arthrodesis status; Z90.710 Acquired absence of both cervix and uterus; Z82.49 Family history of ischemic heart disease and other diseases of the circulatory system; Z83.3 Family history of diabetes mellitus; Z88.6 Allergy status to analgesic agent; Z88.1 Allergy status to other antibiotic agents; Z79.01 Long term (current) use of anticoagulants; Z79.52 Long term (current) use of systemic steroids; Z79.899 Other long term (current) drug therapy